=== PATIENT | male | born 1935 | race Caucasian/White ===

== ENCOUNTER 2017-05-19 23:34 | Inpatient (IN) | payer MEDICARE ==
[~2017-05-19] VITALS: Ht 177.8 cm; Wt 127.0 kg
[2017-05-19 23:49] LABS: APPEARANCE CLOUDY (CLEAR); BILIRUBIN NEGATIVE (NEGATIVE); COLOR YELLOW (YELLOW); GLUCOSE NEGATIVE (NEGATIVE); KETONE NEGATIVE (NEGATIVE); LEUKOCYTE ESTERASE 2+ (NEGATIVE); NITRITE POSITIVE (NEGATIVE); PROTEIN 1+ mg/dL (NEGATIVE); UROBILINOGEN NORMAL (NORMAL)
[2017-05-19 23:50] LABS: BACTERIA MANY /hpf (NONE SEEN); EPITHELIAL CELLS 0-5 /hpf (0-5)
[2017-05-19 23:51] LABS: HEMATOCRIT 27.2 % (42.0-54.0); HEMOGLOBIN 9.1 g/dL (13.5-17.5); LYMPHOCYTES 13.5 % (15-50); MCH 31.6 pg (26.0-34.0); MCHC 33.5 g/dL (31.0-37.0); MCV 94.4 fL (80.0-100.0); MEAN PLATELET VOLUME 9.9 fL (7.4-10.4); NEUTROPHILS 80.9 % (40-80); PLATELET COUNT 163 10x3/uL (130-400); RBC 2.88 10x6/uL (4.20-6.10); RDW 15.1 % (11.5-14.5); WBC 11.4 10x3/uL (4.8-10.8)
[2017-05-20 00:18] LABS: ANION GAP 17.8 mmol/L (8-16); BILIRUBIN - TOTAL 0.5 mg/dL (0.2-1.3); CALCIUM 8.8 mg/dL (8.5-10.1); CARBON DIOXIDE 22.9 mmol/L (21.0-32.0); CREATININE - SERUM 5.3 mg/dL (0.6-1.3); POTASSIUM - SERUM 4.7 mmol/L (3.5-5.1); PROTEIN - SERUM 5.9 g/dL (6.4-8.2)
--- NOTE | 2017-05-20 02:30 | NUR ---
ADMIT TO ROOM 2128 FROM ER. ADMISSION ASSESSMENT COMPLETED. PT IS CONFUSED/[place] AND A VERY POOR HISTORIAN. NO FAMILY PRESENT.
[2017-05-20 03:56] VITALS: BP 155/80; BMI 40.2
[2017-05-20 04:00] VITALS: BP 128/46
--- NOTE | 2017-05-20 07:30 | NUR ---
REPORT RECIEVED. PT RESTING QUIETLY, VERY JOS. RR EVEN AND UNLABORED, DENIES NEEDS AT THIS TIME. WILL CTM.
[2017-05-20 08:10] VITALS: BP 130/58
[2017-05-20 09:27] LABS: % SATURATION 19 % (15-55); IRON 28 ug/dl (35-150); TOTAL IRON BIND CAPACITY 142 ug/dl (260-445); UNSAT IRON BIND CAPACITY 114 ug/dl (150-375)
[2017-05-20 09:31] LABS: ANION GAP 12.5 mmol/L (8-16); CALCIUM 8.8 mg/dL (8.5-10.1); CARBON DIOXIDE 25.2 mmol/L (21.0-32.0); CREATININE - SERUM 5.1 mg/dL (0.6-1.3); MAGNESIUM - SERUM 1.6 mg/dL (1.8-2.4); PHOSPHOROUS 5.2 mg/dL (2.5-4.9); POTASSIUM - SERUM 4.7 mmol/L (3.5-5.1); T4 THYROXINE 3.1 ug/dL (4.7-13.3); THYROID STIMULATING HORMONE 3.14 uIU/mL (0.36-3.74)
[2017-05-20 12:04] VITALS: BP 116/54
[2017-05-20 15:59] VITALS: BP 102/58
--- NOTE | 2017-05-20 17:39 | NUR ---
PT RESTING QUIETLY, TANG CATHETER EMPTIED. RR EVEN AND UNLABORED, FAMILY AT BEDSIDE. SCDS PLACED ON PATIENT AND EXPLAINED RATIONALE FOR SCD. VERBALIZED UNDERSTANDING. WILL CTM.
--- NOTE | 2017-05-20 18:19 | HP ---
PATIENT: TU RUIZ MEDICAL RECORD: [id number] ACCOUNT: [id number] LOCATION:[address] : 37 ADMISSION DATE: 05/20/17 HISTORY AND PHYSICAL EXAMINATION DATE OF ADMISSION: 05/20/2017. CHIEF COMPLAINT: Urinary retention. HISTORY OF PRESENT ILLNESS: This patient is a 81-year-old gentleman who apparently does not have a physician who is admitted to this hospital. He is admitted to my service on an unassigned medicine. The patient apparently does see a nurse practitioner is unsure where, also sees Dr. Naik for diabetes. The patient apparently has had urinary retention in the past. He has also had problems with urinary incontinence has an indwelling Cancino catheter. The patient apparently states he has been bedfast since January 2017 and is nonambulatory. PAST MEDICAL HISTORY: Significant for having hypertension. He has had gastroesophageal reflux, diabetes mellitus, gout. He is a very poor historian. FAMILY HISTORY: Mother in her 80s of heart disease. Father of cancer in his 70s. SOCIAL HISTORY: Born and raised in [place]. 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 HABITS: The patient states he has 1 glass of vodka daily, stopped smoking in his 60s. MEDICATIONS: According to the ER, he uses Carvedilol 25 mg 1 p.o. b.i.d., allopurinol 300 mg 1 tablet p.o. b.i.d., Protonix 40 mg once a day, gabapentin 100 mg once a day, Plavix 75 mg once a day, Lantus subQ, dose unknown. ALLERGIES: No known drug allergies. REVIEW OF SYSTEMS: CONSTITUTIONAL: He denies any headaches, seizures or syncope. Denied change in visual or auditory acuity. PULMONARY: He denies any shortness of breath, cough, congestion, history of TB, asthma, bronchitis. CARDIOVASCULAR: He has had no chest pain, palpitations, PND or orthopnea. GASTROINTESTINAL: No chronic nausea, vomiting, melena or hematochezia. GENITOURINARY: No urgency, frequency, or dysuria. PHYSICAL EXAMINATION: VITAL SIGNS: In the Emergency Room, his temperature is 97, his pulse 71, respirations 20, blood pressure 160/82. GENERAL: The patient is somewhat alert. He is oriented to person only, not to time, not to place. HEENT: Head is normocephalic. No lesions. Ears: TMs clear. Eyes: Pupils equal, round and reactive to light and his extraocular movements are intact. Nasal cavity, oral cavity, oropharynx clear. NECK: Supple. There is no adenopathy. HEART: Has a regular rate and rhythm without any murmurs, gallops or rubs. HISTORY AND PHYSICAL [id number] SARATU LUNGS: Clear. ABDOMEN: Soft, nontender. LABORATORY DATA: White count 11.4, hemoglobin 9.1, hematocrit 27.2 and his platelets were 163. He had sodium of 138, potassium was 4.7, chloride 102, CO2 is 22.9, his BUN is 83, creatinine is 5.3. Urinalysis, the patient has 2+ blood. He also has 10-25 rbc's, 10-25 wbc's, many bacteria is noted. ASSESSMENT: Urinary retention, kidney failure, diabetes mellitus bedfast, hyperuricemia, hypertension. PLAN: The patient is admitted. We will exchange Foleys. We will have a renal ultrasound. Nephrology consultation will be obtained. The patient will be placed on Rocephin 1 gram q.24 hours due to his renal functions. The patient had been given Levaquin in the Emergency Room despite elevated BUN and creatinine. He will have urine cultures. Continue IV hydration. TRANSINT:[id number] Voice Confirmation ID: [id number] DOCUMENT ID: [id number] RICK CHRISTIE MD at 1819 CC: [id number] DICTATION DATE: 05/20/17 0743 DEPARTMENT OF MATHEMATICS CHAIR: 05/20/17 0827 ADM IN [facility] [address] [place] [address]
--- NOTE | 2017-05-20 19:56 | NUR ---
RECEIVED REPORT, WILL ASSUME CARE OF PT, PT SLEEPING AT THIS TIME, BED IS LOW, SRX2, CALL LIGHT IN REACH, WILL CONTINUE PLAN OF CARE
[2017-05-20 20:00] VITALS: BP 138/60
[2017-05-21 04:00] VITALS: BP 135/63
--- NOTE | 2017-05-21 05:00 | NUR ---
PT RESTING IN BED WITH NO DISTRESS. MONITOR AND CPOC.
[2017-05-21 05:29] LABS: BASOPHILS 0.1 % (0-2); EOSINOPHILS 2.1 % (0-7); HEMATOCRIT 24.6 % (42.0-54.0); HEMOGLOBIN 8.1 g/dL (13.5-17.5); IMMATURE GRANULOCYTES 0.3 % (0-5); LYMPHOCYTES 16.9 % (15-50); MCH 31.5 pg (26.0-34.0); MCHC 32.9 g/dL (31.0-37.0); MCV 95.7 fL (80.0-100.0); MEAN PLATELET VOLUME 11.2 fL (7.4-10.4); MONOCYTES 7.2 % (2-11); NEUTROPHILS 73.4 % (40-80); PLATELET COUNT 147 10x3/uL (130-400); RBC 2.57 10x6/uL (4.20-6.10); RDW 15.3 % (11.5-14.5); WBC 8.9 10x3/uL (4.8-10.8)
[2017-05-21 06:08] LABS: ALBUMIN 1.7 g/dL (3.4-5.0); ANION GAP 13.8 mmol/L (8-16); BILIRUBIN - TOTAL 0.26 mg/dL (0.2-1.3); CARBON DIOXIDE 23.5 mmol/L (21.0-32.0); CREATININE - SERUM 4.6 mg/dL (0.6-1.3); POTASSIUM - SERUM 4.3 mmol/L (3.5-5.1); PROTEIN - SERUM 4.9 g/dL (6.4-8.2)
--- NOTE | 2017-05-21 07:34 | NUR ---
AM ROUNDS- PT IN BED, WITH EYES CLOSED, BED LOW AND WHEELS LOCKED, BEDSIDE RAILS X2. RT FA IV INFUSING NS AT 150. RESP EVEN AND UNLABORED ON RA. NAD NOTED, CALL LIGHT IN REACH, WILL CONTINUE TO MONITOR.
[2017-05-21 08:00] VITALS: BP 118/58
[2017-05-21 09:18] LABS: FOLATE (FOLIC ACID) - SERUM >20.0 ng/mL (>3.0)
--- NOTE | 2017-05-21 09:32 | NUR ---
AM MEDS GIVEN AT THIS TIME. PT STATES THAT HIS TANG WAS CHANGED IN THE ER WHEN HE CAME IN LAST NIGHT. STATES THAT HE HAS A TANG BECAUSE HE HAS NO FEELING FROM THE LEGS DOWN. PT IN BED, DENIES ANY NEEDS AT THIS TIME. CALL LIGHT IN REACH, NAD NOTED, WILL CONTINUE TO MONITOR.
[2017-05-21 11:07] VITALS: Ht 177.8 cm; Wt 127.0 kg
--- NOTE | 2017-05-21 11:37 | NUR ---
BLOOD SUGAR OF 165, 2UNITS OF HUMALOG GIVEN PER S/S. PT IN BED, DENIES ANY NEEDS AT THIS TIME. CALL LIGHT IN REACH, NAD NOTED, WILL CONTINUE TO MONITOR.
[2017-05-21 12:00] VITALS: BP 144/58
[2017-05-21 16:00] VITALS: BP 139/58
--- NOTE | 2017-05-21 16:15 | NUR ---
BLOOD SUGAR OF 191, 2 UNITS OF HUMALOG GIVEN PER S/S. PT IN BED, DENIES ANY NEEDS AT THIS TIME. CALL LIGHT IN REACH, NAD NOTED, WILL CONTINUE TO MONITOR.
[2017-05-21 19:00] VITALS: BP 143/59
--- NOTE | 2017-05-21 19:00 | NUR ---
PT IN BED FAMILY AT BEDSIDE DENIES NEEDS AT THIS TIME WILL CONTINUE TO MONITOR
--- NOTE | 2017-05-21 23:30 | NUR ---
PT IN BED RESTING EVEN AND UNLABORED RESPIRATIONS NOTED WILL CONTINUE TO MONITOR
[2017-05-22] VITALS: BP 140/58
[2017-05-22 04:00] VITALS: BP 154/61
--- NOTE | 2017-05-22 04:30 | NUR ---
LOG WASHER AT BEDSIDE TO OBTAIN VITALS, CALL LIGHT IN REACH. WILL CONTINUE TO MONITOR.
[2017-05-22 05:55] LABS: BASOPHILS 0.1 % (0-2); EOSINOPHILS 1.4 % (0-7); HEMATOCRIT 24.6 % (42.0-54.0); HEMOGLOBIN 8.1 g/dL (13.5-17.5); IMMATURE GRANULOCYTES 0.1 % (0-5); LYMPHOCYTES 16.2 % (15-50); MCH 31.3 pg (26.0-34.0); MCHC 32.9 g/dL (31.0-37.0); MEAN PLATELET VOLUME 10.8 fL (7.4-10.4); MONOCYTES 7.2 % (2-11); PLATELET COUNT 143 10x3/uL (130-400); RBC 2.59 10x6/uL (4.20-6.10); RDW 15.4 % (11.5-14.5); WBC 9.4 10x3/uL (4.8-10.8)
[2017-05-22 06:32] LABS: CALCIUM 8.5 mg/dL (8.5-10.1); CARBON DIOXIDE 22.2 mmol/L (21.0-32.0); CREATININE - SERUM 4.2 mg/dL (0.6-1.3); POTASSIUM - SERUM 4.2 mmol/L (3.5-5.1)
--- NOTE | 2017-05-22 07:20 | NUR ---
AM ROUNDING DONE WITH PATIENT APPEARING TO BE ASLEEP, RESP ARE EVEN AND NON LABORED. ON ROOM AIR. RIGHT FA SEEN WITH NS INFUSING AT KVO. TANG CATH PATENT WITH CLEAR YELLOW URINE. ON HEART MONITOR SHOWING CAF W BBB, HR 71. WILL CPOC.
[2017-05-22 08:00] VITALS: BP 134/56
--- NOTE | 2017-05-22 10:08 | NUR ---
TANG CATH REMOVED ORDERED. INSTRUCTED TO USE THE URINAL TO VOID. SON AND PATIENT'S AT BEDSIDE.
--- NOTE | 2017-05-22 11:27 | NUR ---
Patient Name: TU RUIZ Admission Status: ER Accout number: [id number] Admission Date: 05-20-2017 : 1935 Admission Diagnosis:RETENTION OF URINE, UNSPECIFIED Attending: NAIF Current LOS: 2 Anticipated DC Date: Planned Disposition: Home Primary Insurance: HUMANA CHOICE PPO MCR ADVANT LATE ENTRY FROM 05-21-17: Discharge Planning Comments: * Is the patient Alert and Oriented? Yes 0 * How many steps to enter\exit or inside your home? 1 0 * PCP LAURIE DELONG 0 * Pharmacy [facility] 0 * Preadmission Environment Home with Family 0 * ADLs Partial Dependent 0 * Partial ADLs (Assistance needed) Bathing Medication Management Toileting Transfers 0 * Equipment Hospital Bed Walker 0 * Other Equipment NO MEDICAL EQUIPMENT PROVIDER PREFERENCE 0 * List name and contact numbers for known caregivers / representatives who currently or will assist patient after discharge: RAMIRO RUIZ, SPOUSE, 0 * Community resources currently utilized Private Duty Care 0 * Please name any agencies selected above. PRIVATE AIDE SERVICES 2X WEEKLY 0 * Additional services required to return to the preadmission environment? Yes * Can the patient safely return to the preadmission environment? Yes 0 * Has this patient been hospitalized within the prior 30 days at any hospital? No 0 CM MET WITH PT IN ROOM TO DISCUSS DISCHARGE PLANNING AND NEEDS. PT REPORTS LIVING AT HOME DEPENDENT ON HIS SPOUSE AND AIDE SERVICES FOR EVERYTHING. PT HAS A HOSPITAL BED AND WALKER AT HOME BUT REPORTS HE CAN NOT WALK ANYMORE AND DOES NOT GET OUT OF THE BED. PT HAS NO MEDICAL EQUIPMENT PROVIDER PREFERENCE. CM DISCUSSED AVAILABILITY OF HOME HEALTH, REHAB SERVICES AND MEDICAL EQUIPMENT. PT DENIES DISCHARGE NEEDS, REPORTS HIS WILL GET HIM HOME AT DISCHARGE. PT STATES THAT HE IS NOT GOING BACK TO THE ASSISTED THEY DID HIM NO GOOD. PT DOES NOT WANT HOME HEALTH THERAPY STATING THEY CAN NOT DO ANYTHING FOR HIM EITHER. CM CALLED RAMIRO RUIZ, , LEFT MESSAGE AND RECEIVED RETURN CALL. THEY HAVE AIDE SERVICES 2X A WEEK TO ASSIST WITH PT WHO LAST WALKED JANUARY 03, 2017. HE SPENT 14 DAYS AT [facility],THEN 3 MONTHS AT [facility] BEFORE GOING HOME. PT IS CONFINED TO THE BED AND THEY PROVIDE HIS CARE IN THE BED. PT'S SPOUSE REPORTS PLAN TO TAKE PT HOME AT DISCHARGE. PT PLANS TO RETURN HOME WITH SPOUSE. PT AND SPOUSE REPORT PT TO BE BED CONFINED AND PT MAY REQUIRE AMBULANCE TRANSPORT TO GET HOME. CM TO FOLLOW AND ASSIST NEEDED. Marine Firefighter: John Serna
[2017-05-22 12:00] VITALS: BP 137/61
[2017-05-22 16:00] VITALS: BP 136/59
--- NOTE | 2017-05-22 16:07 | NUR ---
POC GLUCOSE CHECKED WITH RESULTS OF 168. WILL COVER WITH 2 UNITS OF INSULIN WHEN SUPPER TRAYS ARE HERE.
--- NOTE | 2017-05-22 17:34 | NUR ---
AT BEDSIDE. LAB RESUTLS REVIEWED WITH HER. PATIENT DENIES ANY NEEDS AT PRESENT TIME.
[2017-05-22 19:00] VITALS: BP 138/64
--- NOTE | 2017-05-22 19:34 | NUR ---
PT BED ATTENTION FOCUSED ON TELEVISION DENIES NEEDS AT THIS TIME WILL CONTINUE TO MONITOR
--- NOTE | 2017-05-23 00:36 | NUR ---
COUNTER TENDER AT BEDSIDE TO OBTAIN VITALS, CALL LIGHT IN REACH. WILL CONTINUE WITH PLAN OF CARE.
[2017-05-23 04:00] VITALS: BP 135/60
[2017-05-23 05:44] LABS: CHOL - HDL RATIO 4.6 ratio (2.3-4.9); LDL-HDL RATIO 2.9 ratio (1.5-3.5)
--- NOTE | 2017-05-23 07:37 | NUR ---
AM ROUNDING WITH PATIENT APPEARING TO BE ASLEEP, RESP ARE EVEN AND NON LABORED AT THIS TIME. ON ROOM AIR. LEFT PACEMAKER SITE SEEN. ON HEART MONITOR SHOWING CAF, HR 78. TANG CATH PATENT WITH CLEAR URINE. RIGHT FA SEEN WITH NS INFUSING AT KVO. BILATERAL SCD ON AND IN USE CORRECTLY. STRICT BEDREST. CPOC.
[2017-05-23 08:00] VITALS: BP 152/63
[2017-05-23 10:56] LABS: ALBUMIN 1.8 g/dL (3.4-5.0); ANION GAP 14.4 mmol/L (8-16); BILIRUBIN - TOTAL 0.4 mg/dL (0.2-1.3); CALCIUM 8.9 mg/dL (8.5-10.1); CARBON DIOXIDE 21.5 mmol/L (21.0-32.0); MAGNESIUM - SERUM 1.2 mg/dL (1.8-2.4); PHOSPHOROUS 4.4 mg/dL (2.5-4.9); POTASSIUM - SERUM 3.9 mmol/L (3.5-5.1); PROTEIN - SERUM 5.4 g/dL (6.4-8.2)
[2017-05-23 10:58] LABS: BASOPHILS 0.1 % (0-2); EOSINOPHILS 2.2 % (0-7); HEMATOCRIT 24.7 % (42.0-54.0); IMMATURE GRANULOCYTES 0.3 % (0-5); LYMPHOCYTES 14.5 % (15-50); MCH 30.7 pg (26.0-34.0); MCHC 32.4 g/dL (31.0-37.0); MCV 94.6 fL (80.0-100.0); MEAN PLATELET VOLUME 11.2 fL (7.4-10.4); MONOCYTES 6.6 % (2-11); NEUTROPHILS 76.3 % (40-80); PLATELET COUNT 162 10x3/uL (130-400); RBC 2.61 10x6/uL (4.20-6.10); RDW 15.1 % (11.5-14.5)
--- NOTE | 2017-05-23 11:03 | NUR ---
Patient Name: TU RUIZ Encounter No: [id number] : 1935 Primary Insurance: HUMANA CHOICE PPO MCR ADVANT Anticipated DC Date: 05-23-2017 Planned Disposition: Home with Home Health External Planned Provider: [facility] DCP follow-up note: CM RECEIVED HOME HEALTH ORDER FROM DR. WILDE, PLANNED DISCHARGE HOME TODAY WITH IM ROCEPHIN Q24. CM SPOKE TO PT IN ROOM WHO IS IN AGREEMENT WITH DISCHARGE HOME TODAY, INSTRUCTED CM TO CALL HIS . CM CALLED RAMIRO RUIZ, SPOUSE, , DISCUSSED DISCHARGE TODAY, RAMIRO IN AGREEMENT WITH DISCHARGE HOME TODAY BY AMBULANCE, SHE WILL BE HOME TO RECEIVE PT THIS AFTERNOON, REQUESTED [facility] THAT IS WHO THEY HAVE USED IN THE PAST. CHOICE LETTER COMPLETED VIA PHONE CONSENT. CM CALLED [place] [facility], , WHO REPORTED THAT PT IS ACTIVE WITH [facility] AND THEY WILL RESUME CARE TOMORROW AND CAN ACCOMODATE THE ROCEPHIN 1GM Q24 HOURS. CM FAXED REFERRAL TO [facility] AT [phone]. PT NOTIFIED, IMPORTANT MESSAGE FROM MEDICARE PROVIDED AND DISCUSSED. FOR DISCHARGE HOME, CALL PT'S SPOUSE, RAMIRO RUIZ, SPOUSE, TO VERIFY SHE IS HOME TO RECEIVE PT PRIOR TO CALLING AMBULANCE. CM TO FAX DISCHARGE INFORMATION AND HOME HEALTH ORDERS TO [facility] AT [phone]. John Serna, CASE MANAGEMENT
[2017-05-23] MEDS ORDERED: FERROUS SULFAT325 MG PO (11:53)
[2017-05-23] MEDS ORDERED: GABAPENTIN100 MG PO (11:54)
[2017-05-23] MEDS ORDERED: LANTUS INSULIN10 ML SC (11:55)
[2017-05-23] MEDS ORDERED: ZOCOR80 MG PO (11:55)
[2017-05-23] MEDS ORDERED: ZYLOPRIM300 MG PO (11:55)
[2017-05-23] MEDS ORDERED: PROTONIX40 MG PO (11:56)
[2017-05-23] MEDS ORDERED: COREG25 MG PO (11:58)
[2017-05-23] MEDS ORDERED: ROCEPHIN 1 GM/D51 G1 IM (12:09)
--- NOTE | 2017-05-23 13:55 | NUR ---
Patient Name: TU RUIZ Encounter No: [id number] : 1935 Primary Insurance: HUMANA CHOICE PPO MCR ADVANT Anticipated DC Date: 05-23-2017 Planned Disposition: Home with Home Health External Planned Provider: [facility] DCP follow-up note: CM RECEIVED AND FAXED DISCHARGE INFORMATION AND HOME HEALTH ORDERS TO [facility] AT [phone]. CM NOTIFIED [place] VIA PHONE AT [phone] OF ADDITIONAL ORDER OF URINALYSIS AND CULTURE IN 3-4 DAYS. FOR DISCHARGE HOME, CALL PT'S SPOUSE, RAMIRO RUIZ, SPOUSE, TO VERIFY SHE IS HOME TO RECEIVE PT PRIOR TO CALLING AMBULANCE. John Serna, CASE MANAGEMENT
--- NOTE | 2017-05-23 14:06 | NUR ---
TRIED TO CALL THE AT [phone] TO MAKE SURE SHE WAS HOME FOR US TO SEND THE PATIENT HOME VIA AMBULANCE. GET A VOICE MAIL AND ASKED THAT SHE CALL US WHEN SHE IS HOME. AWAITING CALL BACK.
--- NOTE | 2017-05-23 15:25 | NUR ---
TRIED AGAIN TO CALL THE , LEFT ANOTHER VOICE MAIL TO PLEASE CALL US.
[2017-05-23 16:00] VITALS: BP 146/60
--- NOTE | 2017-05-23 17:53 | NUR ---
STILL NO ANSWER FROM THE . WILL HAVE NEXT SHIFT CONTINUE TO TRY AND CALL HER. PATIENT IS MADE AWARE OF THIS.
--- NOTE | 2017-05-23 19:10 | NUR ---
CALLED AGAIN TO PATIENT'S TO SEE IF SHE IS HOME. SHE ANSWERED THE PHONE AND SAID THAT SHE WAS HOME. [facility]
--- NOTE | 2017-05-23 19:15 | NUR ---
IV REMOVED WITH CATH TIP INTACT.
== END 2017-05-23 19:50 | disposition home health service (06) | DRG 699 ==
LOC: D.ER 23:34 → D.M2 05-20 01:30
PROVIDERS: Family Medicine; Internal Medicine; Physician Assistant Medical; ADMIT Family Medicine
PROC: 0T9B70Z Drainage of Bladder with Drainage Device, Via Natural or Artificial Opening (ICD-10-PCS; principal; 2017-05-19)
DX: T83.511A Infection and inflammatory reaction due to indwelling urethral catheter, initial encounter (principal); N17.9 Acute kidney failure, unspecified; N39.0 Urinary tract infection, site not specified; E79.0 Hyperuricemia without signs of inflammatory arthritis and tophaceous disease; E11.22 Type 2 diabetes mellitus with diabetic chronic kidney disease; I12.9 Hypertensive chronic kidney disease with stage 1 through stage 4 chronic kidney disease, or unspecified chronic kidney disease; N18.3 Chronic kidney disease, stage 3 (moderate); Z79.4 Long term (current) use of insulin; D50.9 Iron deficiency anemia, unspecified; K21.9 Gastro-esophageal reflux disease without esophagitis; Z74.01 Bed confinement status; Z87.891 Personal history of nicotine dependence; Y84.6 Urinary catheterization as the cause of abnormal reaction of the patient, or of later complication, without mention of misadventure at the time of the procedure

== ENCOUNTER 2017-05-31 19:53 | Inpatient (IN) | payer MEDICARE ==
[~2017-05-31] VITALS: Ht 185.4 cm; Wt 127.3 kg
[~2017-05-31 19:53] MED LIST: COREG25 MG PO; FERROUS SULFAT325 MG PO; GABAPENTIN100 MG PO; LANTUS INSULIN10 ML SC; PROTONIX40 MG PO; ROCEPHIN 1 GM/D51 G1 IM; ZOCOR80 MG PO; ZYLOPRIM300 MG PO
[2017-05-31 20:21] LABS: APPEARANCE HAZY (CLEAR); COLOR YELLOW (YELLOW); LEUKOCYTE ESTERASE TRACE (NEGATIVE); SPECIFIC GRAVITY 1.015 (1.005-1.020)
[2017-05-31 20:22] LABS: BILIRUBIN NEGATIVE (NEGATIVE); GLUCOSE NEGATIVE (NEGATIVE); KETONE NEGATIVE (NEGATIVE); NITRITE POSITIVE (NEGATIVE); PROTEIN TRACE mg/dL (NEGATIVE); UROBILINOGEN NORMAL (NORMAL)
[2017-05-31 20:25] LABS: BACTERIA FEW /hpf (NONE SEEN); EPITHELIAL CELLS RARE /hpf (0-5)
[2017-05-31 20:55] LABS: BASOPHILS 0.1 % (0-2); EOSINOPHILS 1.5 % (0-7); HEMATOCRIT 27.3 % (42.0-54.0); HEMOGLOBIN 8.7 g/dL (13.5-17.5); IMMATURE GRANULOCYTES 0.2 % (0-5); LYMPHOCYTES 11.5 % (15-50); MCH 31.3 pg (26.0-34.0); MCHC 31.9 g/dL (31.0-37.0); MCV 98.2 fL (80.0-100.0); MONOCYTES 6.3 % (2-11); NEUTROPHILS 80.4 % (40-80); PLATELET COUNT 189 10x3/uL (130-400); RBC 2.78 10x6/uL (4.20-6.10); RDW 15.6 % (11.5-14.5)
[2017-05-31 21:08] LABS: ALBUMIN 2.1 g/dL (3.4-5.0); ANION GAP 12.5 mmol/L (8-16); BILIRUBIN - TOTAL 0.5 mg/dL (0.2-1.3); CALCIUM 8.9 mg/dL (8.5-10.1); CARBON DIOXIDE 25.8 mmol/L (21.0-32.0); CREATININE - SERUM 3.2 mg/dL (0.6-1.3); POTASSIUM - SERUM 4.3 mmol/L (3.5-5.1); PROTEIN - SERUM 5.9 g/dL (6.4-8.2)
--- NOTE | 2017-05-31 23:50 | NUR ---
RECEIVED PT TO FLOOR FROM ER VIA STRETCHER. TRANSFERRED PT TO BED. PT UNABLE TO AMBULATE. PRE-HOSPITAL TANG CHANGED IN ER. PT DIRTY. REMOVED DIAPER AND PERFORMED PERICARE AND TANG CARE. NOTED ARE TWO STAGE TWO BLEEDING ULCERS ON EACH SIDE OF INNER BUTTOCKS. CLEANSED AND APPLIED BUTT PASTE AND MEPILEX "HEART" DRESSING. REMOVED DRESSING ON UPPER BACK AND FOUND A QUARTER SIZE "BUMP" WITH YELLOW DRAINAGE. CLEANSED AND APPLIED NEW BORDER DRESSING. BRUISES ON ARMS AND A FEW SCABS ON BACK. PT IS VERY HARD OF HEARING BUT IS ALERT & ORIENTED. NEURO CHECKS ARE WNL. PT HAS GROSS TREMORS BUT SAYS HE IS "COLD". PLACED TELEMETRY RUNNING 70 SR, SCD'S AND MILEY ALARM. COMPLETE ASSESSMENT PER FLOW-SHEET. WILL CONTINUE TO MONITOR.
[2017-06-01] VITALS (7 sets, daily range): BP systolic 95–136; BP diastolic 44–62; Ht 185.4 cm; Wt 127.3 kg
[2017-06-01] MEDS ORDERED: PLAVIX75 MG PO (00:04)
[2017-06-01] MEDS ORDERED: TENEX1 MG PO (00:05)
[2017-06-01] MEDS ORDERED: KEFLEX500 MG PO (00:09)
--- NOTE | 2017-06-01 07:15 | NUR ---
PATIENT RESTING QUIETLY IN THE BED. EYES CLOSED. NO S/S OF DISTRESS NOTED. CALL LIGHT IN PATIENT'S REACH. WILL MONITOR PATIENT.
--- NOTE | 2017-06-01 08:37 | NUR ---
PATIENT IS RESTING IN HIS BED WITH HIS EYES CLOSED. PATIENT AWAKENS TO VERBAL STIMULI. PATIENT KNOWS HIS NAME, WHERE HE IS AT, AND KNOWS WHAT YEAR IT IS. ASSESSMENT COMPLETED. SEE FLOW SHEET FOR ANY DETAILS. TELEMETRY IN PLACE AND SHOWING A PACED RHYTHM AT 63. PATIENT DENIES ANY NEEDS AT PRESENT TIME. SCHEDULED MORNING MEDICATIONS GIVEN TO PATIENT. PATIENT TOLERATED WELL WITH WATER. CALL LIGHT IN PATIENT'S REACH. WILL MONITOR PATIENT.
--- NOTE | 2017-06-01 10:17 | NUR ---
UNABLE TO PERFORM MRI. PATIENT HAS A PACEMAKER. DR SMYTH NOTIFIED.
--- NOTE | 2017-06-01 16:15 | NUR ---
FSBS 173. 2 UNITS OF HUMALOG SLIDING SCALE INSULIN GIVEN TO PATIENT. PATIENT TOLERATED WELL. PATIENT DENIES ANY NEEDS AT PRESENT TIME. CALL LIGHT IN PATIENT'S REACH. WILL MONITOR PATIENT.
--- NOTE | 2017-06-01 19:00 | NUR ---
REPORT RECEIVED AND CARE OF PT ASSUMED. PT LYING IN HIGH ANDREWS'S POSITION WITH EYES CLOSED AND EASY RESPIRATIONS. TANG CATHETER DRAINING TO GRAVITY WITH YELLOW URINE IN COLLECTION BAG. IV IN LEFT FA PATENT WITH NS INFUSING AT 50 ML / HR. TELEMETRY IN PLACE AND PT PACED AT 64 AT THIS TIME. WILL MONITOR CLOSLEY FOR NEEDS.
--- NOTE | 2017-06-01 20:27 | NUR ---
HS MEDICATIONS GIVEN. PT LETHARGIC, BUT AWAKES TO VOICE, FOLLOWS COMMANDS, AND SWALLOWS MEDICATIONS AND WATER WITHOUT DIFFICULTY.
[2017-06-02] VITALS: BP 110/58
[2017-06-02 03:10] LABS: BASOPHILS 0.2 % (0-2); EOSINOPHILS 2.6 % (0-7); HEMATOCRIT 25.6 % (42.0-54.0); HEMOGLOBIN 8.2 g/dL (13.5-17.5); IMMATURE GRANULOCYTES 0.1 % (0-5); LYMPHOCYTES 15.6 % (15-50); MCH 31.3 pg (26.0-34.0); MCV 97.7 fL (80.0-100.0); MEAN PLATELET VOLUME 11.1 fL (7.4-10.4); MONOCYTES 7.5 % (2-11); PLATELET COUNT 182 10x3/uL (130-400); RBC 2.62 10x6/uL (4.20-6.10); RDW 15.6 % (11.5-14.5); WBC 8.3 10x3/uL (4.8-10.8)
[2017-06-02 03:30] LABS: ALBUMIN 1.9 g/dL (3.4-5.0); ANION GAP 14.4 mmol/L (8-16); BILIRUBIN - TOTAL 0.4 mg/dL (0.2-1.3); CARBON DIOXIDE 23.9 mmol/L (21.0-32.0); CREATININE - SERUM 2.9 mg/dL (0.6-1.3); MAGNESIUM - SERUM 1.6 mg/dL (1.8-2.4); PHOSPHOROUS 4.2 mg/dL (2.5-4.9); POTASSIUM - SERUM 4.3 mmol/L (3.5-5.1); PROTEIN - SERUM 5.6 g/dL (6.4-8.2)
[2017-06-02 04:00] VITALS: BP 126/57
--- NOTE | 2017-06-02 05:18 | NUR ---
PER ELECTROLYTE PROTOCOL WILL GIVE MAG 400 MG PO Q4 X2 AND RE-CHECK LEVEL WITH AM LABS.
--- NOTE | 2017-06-02 08:15 | NUR ---
PT SLEEPING. WAKES UP TO VOICE. ANSWERS APPROPRIATELY. ON ROOM AIR. NS INFUSING AT 50 ON L-FOREARM PERIPHERAL IV. TANG SECURED TO LEFT THIGH WITH DRAINAGE BAG BELOW BLADDER. BED LOW POSITION. BED ALARM ON. CALL LIGHT IN REACH. NO OTHER NEEDS AT THIS TIME.
[2017-06-02 08:59] VITALS: BP 128/47
--- NOTE | 2017-06-02 10:12 | NUR ---
TELEPHONE CALL TO MRS MIRANDASCH TO ASCERTAIN THE DISCHARGE PLAN AND COMPLETE PATIENT'S ASSESSMENT. NO ANSWER. LEFT VOICE MAIL.
--- NOTE | 2017-06-02 10:47 | NUR ---
UNABLE TO GIVE TENEX AT 0900. GRAYED OUT IN [place]. CALLED PHARMACY.THEY ARE LOOKING INTO IT. WILL CONINUE TO CHECK.
[2017-06-02 11:41] VITALS: BP 129/55
--- NOTE | 2017-06-02 13:51 | NUR ---
PT GOING TO HAVE CT OF HIS HEAD.
[2017-06-02 16:19] VITALS: BP 128/62
--- NOTE | 2017-06-02 19:30 | NUR ---
RECIEVED SHIFT REPORT. PT IS LYING IN BED. ALERT AND ORIENTED AND ABLE TO VERBALIZE NEEDS. IV IS PATENT AND FLUIDS ARE RUNNING PER ORDER. PT REQUIRES ASSISTANCE TURNING IN BED FOR COMFORT AND SKIN CARE. TANG IS DRAINING URINE BY GRAVITY. SCD'S ON. PT DENIES ANY PAIN AT THIS TIME. NO NEEDS ARE VERBALIZED AT THIS TIME. WILL CONTINUE TO MONITOR. SIDE RAILS ARE UP X 2. BED IS IN LOWEST POSITION. MILEY MAT IS ON FOR SAFETY. CALL LIGHT IS WITHIN REACH.
[2017-06-02 20:00] VITALS: BP 149/68
--- NOTE | 2017-06-02 21:50 | NUR ---
SHIFT ASSESSMENT COMPLETED. NIGHT MEDS GIVEN WITH NO PROBLEMS. PT RECIEVED 2 UNITS INSULIN PER SLIDING SCALE FOR TBID=165. SCHEDULED LANTUS ADMINISTERED PER ORDER. NO NEEDS ARE VOICED. WILL MONITOR. SIDE RAILS X 2. BED LOW. MILEY ON. CALL LIGHT IN REACH.
[2017-06-03] VITALS: BP 127/56
[2017-06-03 03:59] VITALS: BP 130/52
--- NOTE | 2017-06-03 04:36 | NUR ---
URINE SENT TO LAB FOR WARRENTED TESTS.
[2017-06-03 05:05] LABS: BASOPHILS 0.1 % (0-2); EOSINOPHILS 2.1 % (0-7); HEMATOCRIT 25.6 % (42.0-54.0); HEMOGLOBIN 8.2 g/dL (13.5-17.5); IMMATURE GRANULOCYTES 0.2 % (0-5); LYMPHOCYTES 16.5 % (15-50); MCH 31.4 pg (26.0-34.0); MCV 98.1 fL (80.0-100.0); MEAN PLATELET VOLUME 11.6 fL (7.4-10.4); MONOCYTES 7.1 % (2-11); PLATELET COUNT 193 10x3/uL (130-400); RBC 2.61 10x6/uL (4.20-6.10); RDW 15.5 % (11.5-14.5); WBC 8.9 10x3/uL (4.8-10.8)
[2017-06-03 05:21] LABS: ANION GAP 14.7 mmol/L (8-16); CALCIUM 9.1 mg/dL (8.5-10.1); CARBON DIOXIDE 22.6 mmol/L (21.0-32.0); CREATININE - SERUM 2.9 mg/dL (0.6-1.3); MAGNESIUM - SERUM 1.6 mg/dL (1.8-2.4); POTASSIUM - SERUM 4.3 mmol/L (3.5-5.1)
[2017-06-03] MEDS ORDERED: COREG 3.1253.125 MG PO (07:06)
[2017-06-03] MEDS ORDERED: FLORASTOR250 MG PO (07:07)
[2017-06-03] MEDS ORDERED: LANTUS INSULIN10 ML SC (07:07)
[2017-06-03] MEDS ORDERED: ASPIRIN325 MG PO (07:07)
[2017-06-03] MEDS ORDERED: MAG-OX 400 MG400 MG PO (07:08)
--- NOTE | 2017-06-03 07:28 | NUR ---
PT SITTING UP IN BED SLEEPING NO S/S DISTRESS NOTED RR EVEN AND UNLABORED WILL CONT TO MONITOR
[2017-06-03 09:24] VITALS: BP 132/57
--- NOTE | 2017-06-03 09:47 | NUR ---
CM REASSESSMENT NOTE: CM HAS CALLED WIFES NUMBER NUMEROUS TIMES WITH NO ANSWER. CM THEN CALLED ON LICENSE OF [facility] THAT PATIENT IS CURRENT WITH AND SPOKE WITH DEAN HIS TRACK LAYING MACHINE OPERATOR. DEAN STATED THAT THE WILL NEVER ANSWER THE PHONE AND THAT SHE WILL LEAVE HIM HOME AT TIMES. DEAN STATED THAT HE CALLED APS ON THE (LAST WEEK) AND THE [employer] ACTIVITIES DIRECTOR WITH ALSO CALLED APS. THEN DEAN STATED LAURIE MEI WITH HOUSE CALLS ALSO CALLED APS. CM CALLED HOUSE CALLS AND LAURIEOLGA MEI RETURNED CM CALL. LAURIE STATED SHE DID CALL APS AND TALKED WITH RICK REGARDING PATIENTS CARE. PATIENT IS BEING LEFT ALONE FOR LONG PERIODS OF TIME PER LAURIE AND IF HE HAS A BOWEL MOVEMENT HE LAYS IN IT UNTIL DAUGHTER GETS OFF WORK PER HIS . LUARIE STATED THAT IT IS NOT SAFE FOR PATIENT TO RETURN HOME AND TO CALL RICK AT [facility] REGARDING PATIENTS DISCHARGE. CM CALLED RICK AT [facility] AND HE STATED HE HAD SPOKEN TO PATIENTS DAUGHTER AND SHE WAS HIRING HELP FOR HER DAD AND RICK STATED HE WAS FINE TO RETURN HOME AT DISCHARGE AND APS WOULD BE FOLLOWING UP. CM THEN CALLED LAURIE MEI AND EXPLAINED WHAT APS SAID AND SHE STATED SHE WOULD FOLLOW UP THIS WEEK WITH PATIENT AND WOULD SPEAK TO DEMETRIO MOROCHO WITH DR. PACHECO TODAY. CM WILL CONTINUE TO FOLLOW PATIENT WITH D/C NEEDS AND PLANS. PCP SEES LAURIE MEI APN WITH HOUSE CALLS PHARMACY UNKNOWN (RAMIRO) [phone] APS RICK [phone] HOUSE CALLS [phone]
--- NOTE | 2017-06-03 13:33 | NUR ---
PT SITTING UP IN BED EATING LUNCH AT THIS TIME. PT IS LETHARGIC TODAY BUT DOES ARROUSE EASILY TO TOUCH OR VOICE STIMULI. PT WITH TANG CATH THAT HE STATES IS CHRONIC BEFORE ADMISSION, NIGHT STAFF ALSO RELAYED THIS IN REPORT. PT HAS NOT HAD ANY COMPLAINTS JUST WANTS TO GO HOME. PCP IS DR PACHECO AND DR PACHECO TO MAKE ROUNDS TO MAKE SURE OK FOR PT TO BE DC HOME WITH .
[2017-06-03 14:02] VITALS: BP 132/61
--- NOTE | 2017-06-03 14:55 | NUR ---
DAVE HAS CALLED PATIENTS NUMEROUS TIMES WITH NO ANSWER. DAVE CALLED RICK AT [facility] AND HE IS MAKING SOME CALLS AND STILL STATES PATIENT IS OK TO DISCHARGE HOME.
--- NOTE | 2017-06-03 15:18 | NUR ---
CM REASSESSMENT NOTE: CM SPOKE WITH DAUGHTER MELODY AND SHE STATED HER AND HER MOTHER ARE HOME. PATIENT WILL DISCHARGE BY AMBULANCE TODAY. RESPIRATORY CHECKED OXYGEN LEVEL AND IT WAS 97% ON ROOM AIR. HOUSE CALLS WILL SEE PATIENT AFTER DISCHARGE.
--- NOTE | 2017-06-03 16:15 | NUR ---
WENT OVER DC PAPERWORK WITH PT PT VERBALIZES UNDERSTANDING. DC PIV WTIH CATH TIP INTACT. DC TELE AND RETURNED TO DIAMOND POWDER TECHNICIAN. ELISHA ON AMBULANCE TO TOLL TEST WORKER PT
[2017-06-03 16:20] VITALS: BP 135/60
--- NOTE | 2017-06-05 13:55 | EC ---
PATIENT:TU RUIZ DATE OF SERVICE: 05/31/17 SEX: M MEDICAL RECORD: [id number] DATE OF : [birth year] LOCATION:[facility] AGE OF PATIENT: 81 ADMISSION DATE: 06/02/17 REFERRING PHYSICIAN: INTERPRETING PHYSICIAN: ORIANA STONE MD ECHOCARDIOGRAM REPORT ECHO CHARGES 4 ECHO COMPLETE CLINICAL DIAGNOSIS: CVA HX OF PACER ECHOCARDIOGRAPHIC MEASUREMENTS (adult normal given) AC root (d.<3.7cm) 3.8 cm LV Septum d (<1.2 cm> 1.6 cm Valve Excursion 1.0 cm LV Septum (systole) 2.0 cm Left Atria (s.<4.0cm> 4.5 cm LVPW d(<1.2cm) 1.5 cm RV (d.<2.3cm) 5.6 cm LVPW (sytole) 2.0 cm LV diastole(<5.6CM) 6.8 cm MV E-F(>70mm/sec) cm LV systole 4.8 cm LVOT Diameter 1.8 cm MV exc.(>10mm) 1.8 cm Est.ejection fraction (50-75%) % Pericardial Effusion N DOPPLER: LVIT cm/sec A 40.0 cm/sec E 96.0 cm/sec LA cm/sec RVSP 30 mmHg LVOT 80 cm/sec AOP1/2T m/s Asc. Ao 145 cm/sec RVOT cm/sec RA cm/sec PA cm/sec AV Gradient Peak 8.38 mmHg AV Mean 4.48 mmHg AV Area 2.0 cm MV Gradient Peak 6.54 mmHg MV Mean 2.07 mmHg MV Area cm COMMENTS: Poultry Processor: 2 ALBERTO MCCALL Piling Cutter: 3 Dr. Wetzel TAPE# PACS DATE OF SERVICE: 06/01/2017 Adequate 2D echo, color flow, spectral Doppler and M-Mode. LVH is present. LV internal dimensions are normal. 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 Overall, function reduced at 35% to 40%. Aortic valve sclerosis without stenosis by Doppler interrogation. The left atrium is dilated at 4.5 cm. Mitral valve shows no prolapse. Mild MR. Right-sided chamber is grossly normal. Mild TR. TRANSINT:[id number] Voice Confirmation ID: [id number] DOCUMENT ID: [id number] ECHOCARDIOGRAM REPORT [id number] TU RUIZ 06/05/2017 Edited to correct date of service, dmm. ORIANA STONE MD at 1355 CC: [id number] DICTATION DATE: 06/02/17918 PARK ATTENDANT: 06/02/17 1307 DIS IN 06/03/17 [place] [id number]
== END 2017-06-03 17:22 | disposition home or self-care (01) | DRG 637 ==
LOC: D.ER 19:53 → D.MS 22:45 → OBSVTIME 22:45 → D.MS 22:45
PROVIDERS: Emergency Medicine; ADMIT Family Medicine
PROC: 0T9B70Z Drainage of Bladder with Drainage Device, Via Natural or Artificial Opening (ICD-10-PCS; principal; 2017-05-31)
DX: E11.65 Type 2 diabetes mellitus with hyperglycemia (principal); G93.41 Metabolic encephalopathy; G93.49 Other encephalopathy; K21.9 Gastro-esophageal reflux disease without esophagitis; E11.22 Type 2 diabetes mellitus with diabetic chronic kidney disease; N18.9 Chronic kidney disease, unspecified; D63.1 Anemia in chronic kidney disease; Z79.4 Long term (current) use of insulin

== ENCOUNTER → 2017-07-25 15:56 | Outpatient (CLI) | payer MEDICARE ==
[2017-06-01 01:16] VITALS: BMI 37.0
[~2017-07-25 15:56] MED LIST changes: +ASPIRIN325 MG PO; +COREG 3.1253.125 MG PO; +FLORAJEN3 CAPS460 MG PO; +FLORASTOR250 MG PO; +K-DUR20 MEQ PO; +KEFLEX500 MG PO; +LASIX40 MG PO; +MAG-OX 400 MG400 MG PO; +PLAVIX75 MG PO; +TENEX1 MG PO; +VIBRAMYCIN 100100 MG PO
[2017-07-25 16:46] LABS: APPEARANCE HAZY (CLEAR); BILIRUBIN NEGATIVE (NEGATIVE); COLOR YELLOW (YELLOW); GLUCOSE NEGATIVE (NEGATIVE); KETONE NEGATIVE (NEGATIVE); NITRITE NEGATIVE (NEGATIVE); PROTEIN TRACE mg/dL (NEGATIVE); SPECIFIC GRAVITY 1.015 (1.005-1.020); UROBILINOGEN NORMAL (NORMAL)
[2017-07-25 16:47] LABS: BACTERIA MODERATE /hpf (NONE SEEN); WHITE CELLS - URINE >50 /hpf (0-5); YEAST >1+ WITH HYPHAE /hpf (NONE SEEN)
== END | disposition home or self-care (01) ==
LOC: D.LABREF 15:56
PROVIDERS: Family Medicine
DX: N39.0 Urinary tract infection, site not specified (principal)

== ENCOUNTER 2017-08-12 17:06 | Inpatient (IN) | payer MEDICARE ==
[~2017-08-12] VITALS: Ht 185.4 cm; Wt 127.0 kg
[~2017-08-12 17:06] MED LIST changes: -FLORAJEN3 CAPS460 MG PO; -K-DUR20 MEQ PO; -LASIX40 MG PO; -VIBRAMYCIN 100100 MG PO
[2017-08-12 18:38] LABS: HEMATOCRIT 28.8 % (42.0-54.0); HEMOGLOBIN 9.1 g/dL (13.5-17.5); INR 1.06 (0.85-1.17); MCH 31.2 pg (26.0-34.0); MCHC 31.6 g/dL (31.0-37.0); MCV 98.6 fL (80.0-100.0); MEAN PLATELET VOLUME 10.3 fL (7.4-10.4); PLATELET COUNT 216 10x3/uL (130-400); PROTIME 13.7 SECONDS (11.6-15.0); RBC 2.92 10x6/uL (4.20-6.10); RDW 15.9 % (11.5-14.5)
[2017-08-12 18:51] LABS: ALBUMIN 1.9 g/dL (3.4-5.0); ANION GAP 16.2 mmol/L (8-16); BILIRUBIN - TOTAL 0.95 mg/dL (0.2-1.3); CALCIUM 9.8 mg/dL (8.5-10.1); CARBON DIOXIDE 22.8 mmol/L (21.0-32.0); CREATININE - SERUM 2.2 mg/dL (0.6-1.3); MAGNESIUM - SERUM 1.6 mg/dL (1.8-2.4); PROTEIN - SERUM 6.4 g/dL (6.4-8.2); TROPONIN-I 0.044 ng/mL (0.000-0.060)
[2017-08-12 19:04] LABS: EOSINOPHILS 4 % (0-7); LYMPHOCYTES 3 % (15-50); MONOCYTES 3 % (2-11); NEUTROPHILS 90 % (40-80); PLATELET ESTIMATE NORMAL
[2017-08-12 22:32] LABS: APPEARANCE CLEAR (CLEAR); COLOR YELLOW (YELLOW); GLUCOSE NEGATIVE (NEGATIVE); NITRITE NEGATIVE (NEGATIVE); PROTEIN NEGATIVE (NEGATIVE); SPECIFIC GRAVITY 1.015 (1.005-1.020)
[2017-08-12 22:33] LABS: BILIRUBIN NEGATIVE (NEGATIVE); KETONE NEGATIVE (NEGATIVE); UROBILINOGEN NORMAL (NORMAL)
[2017-08-12 22:34] LABS: BACTERIA MODERATE /hpf (NONE SEEN); RED CELLS - URINE 0-5 /hpf (0-5)
--- NOTE | 2017-08-13 02:16 | NUR ---
REC'D FROM ER. ALERT AND ORIENTED X3. DENIED PAIN AT THIS TIME. TRANSFERED TO THE BED. RIGHT SIDE OF NECK IS RED AND SWOLLEN. THERE IS A DRESSING ON BOTTOM. DID NOT REMOVED. REPORTED TO DELORIS REGALADO. HAS TANG THAT CAME FROM HOME. PERINEAL REGION IS RED AND EXCORAIATED. DENIED NEEDS AT THIS TIME. INSTRUCTED TO CALL IF NEEDED ANYTHING, VERBALIZED UNDERSTANDING. BED LOW, LOCKED, CALL LIGHT IN REACH.
[2017-08-13 04:00] VITALS: BP 125/57
[2017-08-13 05:46] VITALS: BP 122/55; BMI 37.0
--- NOTE | 2017-08-13 06:13 | NUR ---
FABRICIO RN AND I REMOVED THE DRESSING FROM BOTTOM, AND IT IS PACKED. LEFT PACKING IN. WOUND LOOKED UNSTAGEABLE. COVERED WITH 4X4 AND ABD PAD. THERE WAS PURULENT DRAINGE. THERE IS A WOUND CONSULT IN PLACE. ALSO PLACED MILEY MAT AND TURNED ON. FALL PRECAUTIONS ARE IN PLACE.
--- NOTE | 2017-08-13 08:04 | NUR ---
AWAKE AND ALERT. ORIENTED X3. NO C/O AT THIS TIME. LUNGS ARE CLEAR BIALTERALLY, NO COUGH NOTED. SKIN IS INTACT WITHOUT REDNESS EXCEPT STAGE 2 TO COCCYX AREA WHICH HAS A DRY INTACT DRESSING IN PLACE AND REDNESS NOTED TO RIGHT SIDE OF NECK WHCIH IS SLIGHTLY WARM BUT INTACT. SL TO LEFT HAND IS PATENT WITHOUT REDNESS AT INSERTION SITE. DENIES NEEDS.
[2017-08-13 08:49] VITALS: BP 143/61
--- NOTE | 2017-08-13 09:00 | NUR ---
IV FOUND TO OUT WITH CATHETER INTACT. WILL RESITE.
--- NOTE | 2017-08-13 10:30 | NUR ---
RESTING QUIELTLY WITH EYES CLOSED. DENIES NEEDS.
[2017-08-13 10:38] LABS: BASOPHILS 0.1 % (0-2); EOSINOPHILS 0 % (0-7); HEMOGLOBIN 9.1 g/dL (13.5-17.5); IMMATURE GRANULOCYTES 0.5 % (0-5); LYMPHOCYTES 3.4 % (15-50); MCH 31.7 pg (26.0-34.0); MCHC 32.5 g/dL (31.0-37.0); MCV 97.6 fL (80.0-100.0); MEAN PLATELET VOLUME 11.1 fL (7.4-10.4); MONOCYTES 3.3 % (2-11); NEUTROPHILS 92.7 % (40-80); PLATELET COUNT 212 10x3/uL (130-400); RBC 2.87 10x6/uL (4.20-6.10); RDW 15.7 % (11.5-14.5); WBC 34.9 10x3/uL (4.8-10.8)
[2017-08-13 10:48] LABS: ALBUMIN 1.8 g/dL (3.4-5.0); ANION GAP 15.8 mmol/L (8-16); BILIRUBIN - TOTAL 0.7 mg/dL (0.2-1.3); CALCIUM 9.7 mg/dL (8.5-10.1); CREATININE - SERUM 2.3 mg/dL (0.6-1.3); MAGNESIUM - SERUM 1.8 mg/dL (1.8-2.4); PHOSPHOROUS 3.6 mg/dL (2.5-4.9); POTASSIUM - SERUM 3.8 mmol/L (3.5-5.1); PROTEIN - SERUM 6.4 g/dL (6.4-8.2)
--- NOTE | 2017-08-13 12:06 | NUR ---
FSBS 242. GIVEN 4 UNITS REGULAR INSULIN SUBQ PER SS.
[2017-08-13 13:07] VITALS: Ht 185.4 cm; Wt 127.0 kg
--- NOTE | 2017-08-13 13:07 | NUR ---
Wound care consult: Pt is noted to have a stage 3 pressure injury on sacrum. It appears to have healed some d/t scarring of surrounding tissue. Wound measures 5cm x 5cm x 1.5cm x 3cm from 12-3 oclock. The wound bed is beefy red. There is no odor. Moderate serous drainage noted on dressing. Pt has home health changing dressing at home with wet to dry packing using Dakins 1/4 strength solution. Recommend continuing the same treatment during hospital stay. Right facial edema and redness is noted also. No open wounds noted in this area. After dressing was applied, pt was repositioned to his left side. Wound care will continue to monitor.
[2017-08-13 13:46] VITALS: BP 131/53
--- NOTE | 2017-08-13 17:00 | NUR ---
FSBS 185. GIVEN 2 UNITS REGULAR SUBQ PER SS.
--- NOTE | 2017-08-13 19:35 | NUR ---
A&O, DENIES NEEDS, VERY CH[place] LAG[place]ON, NO DISTRESS NOTED, DENIES PAIN AT THIS TIME, CALL LIGHT IN REACH, BED LOWEST POSITION, WILL CONTINUE TO MONITOR
[2017-08-13 20:00] VITALS: BP 138/61
--- NOTE | 2017-08-13 21:30 | NUR ---
PLACED PT ON TELEMETRY, DENIES NEEDS, BED LOWEST POSITON, CALL LIGHTIN REACH, WILL CONTINUE TO MONITOR
--- NOTE | 2017-08-13 23:03 | NUR ---
SLEEPING, NO DISTRESS NOTED, BREATHING EVEN UNLABORED,
--- NOTE | 2017-08-14 01:03 | NUR ---
SLEEPING, NO DITRESS NOTED, CALL LIGHT IN REACH, WILL CONTINEU TO MONITOR
--- NOTE | 2017-08-14 03:44 | NUR ---
SLEEPING, NO DISTRESS NOTED, BREATHING EVEN UNLABORED, CALL LIGHT IN REACH
[2017-08-14 04:00] VITALS: BP 121/58
[2017-08-14 05:25] LABS: BASOPHILS 0 % (0-2); EOSINOPHILS 0.3 % (0-7); HEMATOCRIT 24.1 % (42.0-54.0); HEMOGLOBIN 7.8 g/dL (13.5-17.5); IMMATURE GRANULOCYTES 0.3 % (0-5); LYMPHOCYTES 6.3 % (15-50); MCH 31.3 pg (26.0-34.0); MCHC 32.4 g/dL (31.0-37.0); MCV 96.8 fL (80.0-100.0); MEAN PLATELET VOLUME 11.2 fL (7.4-10.4); MONOCYTES 3.6 % (2-11); NEUTROPHILS 89.5 % (40-80); PLATELET COUNT 194 10x3/uL (130-400); RBC 2.49 10x6/uL (4.20-6.10); RDW 15.7 % (11.5-14.5); WBC 28.8 10x3/uL (4.8-10.8)
[2017-08-14 05:38] LABS: ALBUMIN 1.6 g/dL (3.4-5.0); ANION GAP 16.5 mmol/L (8-16); BILIRUBIN - TOTAL 0.47 mg/dL (0.2-1.3); CALCIUM 8.9 mg/dL (8.5-10.1); CARBON DIOXIDE 22.1 mmol/L (21.0-32.0); CREATININE - SERUM 2.2 mg/dL (0.6-1.3); POTASSIUM - SERUM 3.6 mmol/L (3.5-5.1)
--- NOTE | 2017-08-14 07:00 | NUR ---
REPORT RECIEVED ASSUMED CARE. PATIENT IN BED WITH IV ITNACT. NO COMPLAINTS AT THIS TIME. CALL LIGHT WITHIN REACH.
[2017-08-14 09:03] VITALS: BP 118/37
[2017-08-14 12:32] VITALS: BP 122/59
[2017-08-14 16:48] VITALS: BP 128/53
--- NOTE | 2017-08-14 18:50 | NUR ---
PATIENT IN BED WITH IV INTACT. NO COMPLAINTS OR SIGNS OF DISTRESS. NOTIFED DR. DEL TORO ABOUT GRAM POSTIVE COCCI IN [place] CULTURES. NO NEW ORDERS AT THIS TIME. CALL LIGHT WITHIN REACH.
--- NOTE | 2017-08-14 19:40 | NUR ---
SLEEPING, NO DISTRESS NOTED, BREATHING SHALLOW UNLABORED, CALL LLIGHT IN REACH, BED LOWEST POSITION, WILL CONTINUE TO MONITOR
[2017-08-14 20:00] VITALS: BP 104/47
[2017-08-15] VITALS (11 sets, daily range): BP systolic 115–145; BP diastolic 49–73
--- NOTE | 2017-08-15 03:00 | NUR ---
PT RESTING QUIETLY, EYES CLOSED. RESP EVEN, UNLABORED. NO DISTRESS NOTED. CONTINUE PAPERBOARD MACHINE OPERATOR'S PLAN OF CARE.
--- NOTE | 2017-08-15 06:31 | NUR ---
AWAKE AND WATCHING TV, DENIES NEEDS
--- NOTE | 2017-08-15 07:00 | NUR ---
REPORT RECIEVED ASSUMED CARE. PATIENT IN BED WITH IV INTACT. NO COMPLAINTS AT THIS TIME CALL LIGHT WITHIN REACH.
[2017-08-15 08:08] LABS: BASOPHILS 0.1 % (0-2); EOSINOPHILS 3.5 % (0-7); HEMATOCRIT 22.4 % (42.0-54.0); IMMATURE GRANULOCYTES 0.3 % (0-5); LYMPHOCYTES 10.4 % (15-50); MCH 32.2 pg (26.0-34.0); MCHC 33.5 g/dL (31.0-37.0); MCV 96.1 fL (80.0-100.0); MEAN PLATELET VOLUME 10.9 fL (7.4-10.4); MONOCYTES 4.4 % (2-11); NEUTROPHILS 81.3 % (40-80); PLATELET COUNT 180 10x3/uL (130-400); RBC 2.33 10x6/uL (4.20-6.10); RDW 15.5 % (11.5-14.5)
[2017-08-15 08:23] LABS: ALBUMIN 1.4 g/dL (3.4-5.0); ANION GAP 13.5 mmol/L (8-16); BILIRUBIN - TOTAL 0.3 mg/dL (0.2-1.3); CALCIUM 8.8 mg/dL (8.5-10.1); CARBON DIOXIDE 22.8 mmol/L (21.0-32.0); CREATININE - SERUM 1.9 mg/dL (0.6-1.3); POTASSIUM - SERUM 3.3 mmol/L (3.5-5.1); PROTEIN - SERUM 5.1 g/dL (6.4-8.2)
[2017-08-15 08:32] LABS: HEMOGLOBIN 7.5 g/dL (13.5-17.5); WBC 11.5 10x3/uL (4.8-10.8)
--- NOTE | 2017-08-15 14:30 | NUR ---
PATIENT IV OUT. CATH TIP INTACT. WILL RESTART WILY. CALL LIGHT WITHIN REACH. BSCDS ON AND WORKING.
--- NOTE | 2017-08-15 16:00 | NUR ---
NEW IV STARTED IN RIGHT AC. BLOOD DRAWN FROM SITE FOR TYPE AND SCREEN DUE TO LAB NOT BEING ABLE TO DRAW BLOOD FROM PATIENT. PATIENT IS TO RECIEVE 2 UNITS. 20 G STARTED X 1 STICK. BSCDS ON AND WORKING. CALL LIGHTW ITHIN REACH.
--- NOTE | 2017-08-15 18:55 | NUR ---
PATIENT IN BED WITH IV INTACT. NO COMPLAINTS AT THIS TIME. NOTIFIED NIGHT NURSE PATIENT IS TO RECIEVE 2 UNITS. BLOOD NOT READY YET. PATIENT HAS NO COMPLAINTS OR SIGNS OF DISTRESS. CALL LIGHT WITHIN REACH.
[2017-08-16] VITALS (7 sets, daily range): BP systolic 135–148; BP diastolic 62–93
--- NOTE | 2017-08-16 03:26 | NUR ---
INITIATED SECOND UNIT OF PRBC. PATIENT IS AWAKE AND ALERT. NO SIGNS OF DISTRESS NOTED. HE DENIES NEEDS AT THIS TIME.
--- NOTE | 2017-08-16 05:00 | NUR ---
TANG CARE COMPLETED USING TANG CARE WIPES. TURNED PATIENT TO HIS LEFT SIDE POSITIONED WITH PILLOWS BEHIND HIS BACK, AND BETWEEN HIS LEGS. PATIENT VERBALIZED FEELING COMFORTABLE. PATIENT DENIES ANY OTHER NEEDS AT THIS TIME.
--- NOTE | 2017-08-16 07:10 | NUR ---
REPORT RECEIVED, ASSUMED CARE OF PT. CONTACT ISOLATION IN PLACE. RESTING, EASILY AROUSED, VERY HARD OF HEARING. R AC IV INFUSING ORDERED, DRSG C/D/I. R LOWER JAW/FACIAL SWELLING NOTED WITH MINIMAL PAIN 12/13. TANG CATHETER IN PLACE. TELEMETRY IN PLACE WITH PACED RHYTHM. NO NEEDS VOICED AT THIS TIME. BED IN LOWEST POSITION, SIDE RAILS UP X 2, CALL LIGHT WITHIN REACH.
[2017-08-16 08:48] LABS: BASOPHILS 0.2 % (0-2); EOSINOPHILS 2.9 % (0-7); IMMATURE GRANULOCYTES 0.9 % (0-5); LYMPHOCYTES 11.7 % (15-50); MCH 30.5 pg (26.0-34.0); MCHC 33.2 g/dL (31.0-37.0); MEAN PLATELET VOLUME 10.8 fL (7.4-10.4); MONOCYTES 5.7 % (2-11); NEUTROPHILS 78.6 % (40-80); PLATELET COUNT 192 10x3/uL (130-400); RDW 16.7 % (11.5-14.5); WBC 10.8 10x3/uL (4.8-10.8)
[2017-08-16 08:50] LABS: HEMATOCRIT 31.9 % (42.0-54.0); HEMOGLOBIN 10.6 g/dL (13.5-17.5); MCV 91.9 fL (80.0-100.0); RBC 3.47 10x6/uL (4.20-6.10)
[2017-08-16 09:03] LABS: ALBUMIN 1.5 g/dL (3.4-5.0); ANION GAP 13.5 mmol/L (8-16); BILIRUBIN - TOTAL 0.54 mg/dL (0.2-1.3); CALCIUM 9.1 mg/dL (8.5-10.1); CARBON DIOXIDE 23.2 mmol/L (21.0-32.0); CREATININE - SERUM 1.8 mg/dL (0.6-1.3); POTASSIUM - SERUM 3.7 mmol/L (3.5-5.1); PROTEIN - SERUM 5.6 g/dL (6.4-8.2)
--- NOTE | 2017-08-16 22:00 | NUR ---
PATIENT HAD AN INCONTINENT BOWEL MOVEMENT, STOOL WAS LARGE AND SOFT GREENISH-BROWN IN COLOR. THE STOOL MADE CONTACT WITH DRESSING ON PATIENT'S BOTTOM. WITH ASSISTANCE FROM PRODUCTION TEAM LEADER, CLEANED PATIENT UP FROM THE STOOL. THE PRODUCTION TEAM LEADER ASSISTING PATIENT LAYING ON HIS SIDE WHILE I CHANGED HIS DRESSING. REMOVED THE SOILED DRESSING. CLEANED ALL WOUNDS WITH STERILE WOUND CHILD DEVELOPMENT CONSULTANT AND 4X4 GAUZE. PATIENT'S BOTTOM IS EXCORIATED AROUND WOUNDS. PATIENT HAS A STAGE 3 PRESSURE ULCER TO COCCYX, MEASURED WOUND: 2.5CM X 2CM X 3.5CM, THE WOUND IS BEEFY RED, NO FOUL ODOR NOTED, ONLY A SMALL AMOUNT OF BLOODY DRAINAGE NOTED ON THE PACKING THAT I REMOVED FROM THE WOUND. THE OUTER RIGHT SIDE OF THE WOUND HAS A STAGE 2 PRESSURE ULCER, MEASURED THE STAGE 2: 3.5CM X 2CM. THE OUTER LEFT SIDE OF THE WOUND HAS A STAGE 2 PRESSURE ULCER, MEASURED THE STAGE 2: 3.5CM X 3.5CM. THE LEFT BUTTOCKS HAS A STAGE 2 PRESSURE ULCER MEASURED 3.5CM X 2.5CM. PACKED THE STAGE 3 PRESSURE ULCER USING KERLIX MOISTENED WITH DAKINS SOLUTION, AND COVERED WITH DRY 4X4 GAUZE AND AN ABD PAD. ON THE LEFT LATERAL BUTTOCKS, THERE IS SKIN PEELING, MADE SURE TO COVER THAT AREA WITH THE ABD PAD SO PREVENT THE TAPE FROM COMING IN CONTACT. TURNED PATIENT TO HIS RIGHT SIDE, POSITIONED WITH PILLOWS. HE DENIES NEEDS. CALL LIGHT IN REACH.
[2017-08-17] VITALS: BP 150/82
--- NOTE | 2017-08-17 00:07 | NUR ---
TURNED PATIENT TO HIS LEFT SIDE POSITIONED WITH PILLOWS. PATIENT DENIES NEEDS AT THIS TIME.
--- NOTE | 2017-08-17 02:49 | NUR ---
WENT IN PATIENT'S ROOM TO TURN HIM, WOKE HIM UP AT 0227. PATIENT'S PAD IS WET WITH URINE, PATIENT STATED "I DO NOT THINK MY CATHETER IS WORKING." URINE IS LEAKING OUT FROM AROUND CATHETER. WITH ASSIST FROM EQUIPMENT TECH CHANGED PATIENT'S LINENS, PATIENT HAD A SMALL BM, CLEANED PATIENT. CHANGED HIS GOWN. REMOVED TANG CATHETER, IT IS A 16FR WITH A 5-10ML BULB. REPLACED WITH A 16 FR TANG CATHETER, 10ML BULB. STERILE TECHNIQUE MAINTAINED. PATIENT TOLERATED WELL. TURNED PATIENT TO HIS RIGHT SIDE POSITIONED WITH PILLOWS. PATIENT DENIES NEEDS AT THIS TIME. BED IN LOWEST POSITION, CALL LIGHT IN REACH. BED RIALS UP X'S 2.
[2017-08-17 04:00] VITALS: BP 141/76
[2017-08-17 05:26] LABS: BASOPHILS 0.2 % (0-2); EOSINOPHILS 1.9 % (0-7); HEMATOCRIT 33.3 % (42.0-54.0); IMMATURE GRANULOCYTES 2.8 % (0-5); LYMPHOCYTES 14.3 % (15-50); MCH 30.6 pg (26.0-34.0); MCV 92.5 fL (80.0-100.0); MEAN PLATELET VOLUME 11.2 fL (7.4-10.4); MONOCYTES 6.6 % (2-11); NEUTROPHILS 74.2 % (40-80); PLATELET COUNT 229 10x3/uL (130-400); RDW 17.3 % (11.5-14.5); WBC 11.6 10x3/uL (4.8-10.8)
[2017-08-17 06:08] LABS: ALBUMIN 1.6 g/dL (3.4-5.0); ANION GAP 14.7 mmol/L (8-16); BILIRUBIN - TOTAL 0.42 mg/dL (0.2-1.3); CALCIUM 8.3 mg/dL (8.5-10.1); CARBON DIOXIDE 22.8 mmol/L (21.0-32.0); CREATININE - SERUM 1.7 mg/dL (0.6-1.3); POTASSIUM - SERUM 3.5 mmol/L (3.5-5.1)
--- NOTE | 2017-08-17 07:05 | NUR ---
REPORT RECEIVED, ASSUMED CARE OF PT. CONTACT ISOLATION PRECAUTIONS IN PLACE. RESTING, EASILY AROUSED. R AC IV INFUSING FLUIDS ORDERED, DRSG C/D/I. TANG CATHETER IN PLACE, PATENT, DRAINING. MINIMAL R FACIAL SWELLING NOTED. NO NEEDS VOICED AT THIS TIME. BED IN LOWEST POSITION, SIDE RAILS UP X 2, CALL LIGHT WITHIN REACH.
[2017-08-17 08:14] VITALS: BP 153/89
[2017-08-17 12:13] VITALS: BP 153/90
[2017-08-17 15:33] VITALS: BP 154/95
[2017-08-17 20:00] VITALS: BP 113/79
--- NOTE | 2017-08-17 20:10 | NUR ---
UPON ENTERING ROOM PATIENT RESTING QUIETLY WITH EYES CLOSED LAYING ON HIS LEFT SIDE. PATIENT HAD AN INCONTINENT BOWEL MOVEMENT WITH ASSIST FROM SHUTTLER CLEANED PATIENT AND CHANGED BLUE CHUCKS. HIS DRESSING HAS STOOL ON IT. REMOVED THE DRESSING. CLEANED WITH STERILE WOUND CERAMIC COATER MACHINE AND PATTED DRY WITH 4X4 GAUZE. WIPED SKIN WITH SKIN PROTECTANT WHERE THE TAPE WILL BE APPLIED. CHANGED DRESSING. PACKED WITH KERLIX MOISTENED WITH DAKINS SOLUTION. COVERED WITH 1 PACKAGE OF 4X4 GAUZE AND AN ABD PAD. TAPED WITH MEDIPORE TAPE.
--- NOTE | 2017-08-17 20:15 | NUR ---
TURNED PATIENT TO HIS RIGHT SIDE POSITIONED WITH PILLOWS BEHIND HIS BACK AND A PILLOW BETWEEN HIS LEGS AT THE KNEES.
--- NOTE | 2017-08-17 23:52 | NUR ---
PATIENT REQUESTED TO BE TURNED FROM HIS LEFT SIDE TO HIS BACK. DEVIL TENDER AND ANOTHER NURSE ASSISTED PATIENT ONTO HIS BACK.
[2017-08-18] VITALS: BP 147/83
--- NOTE | 2017-08-18 00:45 | NUR ---
TURNED PATIENT TO HIS RIGHT SIDE POSITIONED WITH PILLOWS. PATIENT DENIES NEEDS AT THIS TIME. BED IN LOWEST POSITION, CALL LIGHT IN REACH.
--- NOTE | 2017-08-18 02:00 | NUR ---
PATIENT STATED HIS KNEES ARE UNCOMFORTABLE, REPOSITONED PATIENT FURTHER ON HIS LEFT SIDE, REPOSTIONED THE PILLOWS AND PUT A PILLOW BETWEEN HIS LEGS SEPARTING HIS KNEES FROM TOUCHING. PATIENT VERBALIZED THAT HE IS COMFORTABLE. HE DENIES ANY OTHER NEEDS AT THIS TIME. CHANGED IV TUBING. CALL LIGHT IN REACH.
--- NOTE | 2017-08-18 03:40 | NUR ---
COACH OPERATOR TURNED PATIENT TO HIS LEFT SIDE POSITIONED WITH PILLOWS.
[2017-08-18 04:00] VITALS: BP 147/77
--- NOTE | 2017-08-18 04:00 | NUR ---
COMPLETED TANG CARE USING TANG CARE WIPES.
[2017-08-18 06:18] LABS: BASOPHILS 0.1 % (0-2); EOSINOPHILS 1.8 % (0-7); HEMATOCRIT 34.2 % (42.0-54.0); HEMOGLOBIN 11.3 g/dL (13.5-17.5); IMMATURE GRANULOCYTES 3.2 % (0-5); LYMPHOCYTES 14.6 % (15-50); MCH 30.3 pg (26.0-34.0); MCV 91.7 fL (80.0-100.0); MEAN PLATELET VOLUME 10.9 fL (7.4-10.4); MONOCYTES 6.6 % (2-11); NEUTROPHILS 73.7 % (40-80); PLATELET COUNT 228 10x3/uL (130-400); RBC 3.73 10x6/uL (4.20-6.10); RDW 16.8 % (11.5-14.5); WBC 14.2 10x3/uL (4.8-10.8)
--- NOTE | 2017-08-18 06:30 | NUR ---
WAVED AT ME WHEN I WAS WALKING BY HIS ROOM. I STATED "CAN I HELP YOU?" HE STATED "YEAH, I CAN'T GET THE HECK OUT OF THIS BED." I STATED "YOU CANNOT WALK, WHY ARE YOU TRYING TO GET UP?" PATIENT LAUGHED AND STATED "THAT'S A GOOD QUESTION." I STATED "I THINK YOU ARE GETTING A LITTLE CONFUSED." PATIENT STATED "I THINK YOU ARE RIGHT." I STATED "PLEASE DO NOT TRY TO GET OUT OF THE BED." HE STATED "I WON'T." HE DENIES ANY NEEDS AT THIS TIME.
[2017-08-18 06:39] LABS: ALBUMIN 1.7 g/dL (3.4-5.0); ANION GAP 16.4 mmol/L (8-16); BILIRUBIN - TOTAL 0.46 mg/dL (0.2-1.3); CALCIUM 8.8 mg/dL (8.5-10.1); CARBON DIOXIDE 21.1 mmol/L (21.0-32.0); CREATININE - SERUM 1.5 mg/dL (0.6-1.3); POTASSIUM - SERUM 3.5 mmol/L (3.5-5.1); PROTEIN - SERUM 5.1 g/dL (6.4-8.2)
--- NOTE | 2017-08-18 07:00 | NUR ---
REPORT RECIEVED ASSUMED CARE. PATIENT IN BED WITH IV INTACT. NO COMPLAINTS AT THIS TIME. CALL LIGHT WITHIN REACH.
[2017-08-18 07:50] VITALS: BP 142/77
[2017-08-18] MEDS ORDERED: FLORAJEN3 CAPS460 MG PO (14:29)
[2017-08-18] MEDS ORDERED: VIBRAMYCIN 100100 MG PO (14:29)
--- NOTE | 2017-08-18 15:12 | NUR ---
ATTEMPTED TO CALL (RAMIRO) AT [phone], THERE WAS NOT A ANSWER ASKED FOR WAIFE TO CALL ME BACK. AFTER LOOKING INTO HIS PREVIOUS STAYS IN THE HOSPITAL. PATIENT HAS A HOSPITAL BED AND A WALKER. HE USED EMS TO GET HOME LAST TIME AND HE HAS ALSO HAD A OPEN APS CASE WHERE Anahi CABRERA WAS THE VIRTUALIZATION CONSULTANT. CM WILL CONTINUE TO FOLLOW AND ASSIST WITH DISCHARGE PLANNING NEEDS.
--- NOTE | 2017-08-18 15:37 | NUR ---
NUTRITION F/U CHART REVIEWED. PT REMAINS IN ISOLATION, ONLY ~25% INTAKE RECENT MEALS WITH ASSIST. NOTE POSSIBLE DC PLANNING. RD FOLLOWING
--- NOTE | 2017-08-18 16:27 | NUR ---
Patient Name: TU RUIZ Admission Status: ER Accout number: [id number] Admission Date: 08-12-2017 : 1935 Admission Diagnosis:CELLULITIS OF FACE Attending: WANDA MICHEL Current LOS: 6 Anticipated DC Date: Planned Disposition: Primary Insurance: [employer] [facility] Discharge Planning Comments: CM SPOKE WITH DAUGHTER MELODY WHO ANSWERED QUESTIONS FOR ME. PATIENT IS A TOTAL CARE PATIENT WHO LIVES AT HOME WITH HIS AND DAUGHTER MELODY. PATIENT HAS A HOSPITAL BED AND WALKER AT HOME. MELODY SAID THAT HE IS CURRENT WITH [facility]. CM CALLED AND VERIFIED THAT HS IS CURRENT. 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 THEY HAVE A CONTRACT WITH [employer]. MELODY ASSURED ME THAT IT WAS SAFE FOR HER FATHER TO RETURN HOME. PATIENT WILL BE DISCHARGED HOME TODAY VIA EMS. ANY QUESTIONS RELATING TO HER FATHERS CARE PLEASE CALL MELODY AT [phone] Evangelina MEI WITH HOUSE CALLS MELODY (DAUGHTER) [phone] Process Engineering Intern: Mary Aceves
--- NOTE | 2017-08-18 17:00 | NUR ---
PATIENT DISCHARGE INSTRUCTIONS GIVEN TO PATIENT DAUGHTER. VERBALIZED UNDERSTANDING. WENT OVER NEW MEDS. NO QUESTIONS AT THIS TIME. IV REMOVED ON PATIENT AT THIS TIME WITH CATH TIP INTACT. DRESSING CHANGED AND CLEANED UP FROM . TURNED TO SIDE. CALL LIGHT WITHIN REACH.
[2017-08-18 17:17] VITALS: BP 159/89
--- NOTE | 2017-08-18 18:27 | NUR ---
PATIENT LEFT WITH EMT TO AMBULANCE TO DC HOME. PERSONAL BELONGINGS AT BS.
== END 2017-08-18 18:29 | disposition home health service (06) | DRG 603 ==
LOC: D.ER 17:06 → D.MS 22:13
PROVIDERS: Nurse Practitioner Family; ADMIT Emergency Medicine
DX: L03.211 Cellulitis of face (principal); N17.9 Acute kidney failure, unspecified; E87.1 Hypo-osmolality and hyponatremia; R32 Unspecified urinary incontinence; D50.9 Iron deficiency anemia, unspecified; E11.22 Type 2 diabetes mellitus with diabetic chronic kidney disease; N18.9 Chronic kidney disease, unspecified; E11.65 Type 2 diabetes mellitus with hyperglycemia; B95.62 Methicillin resistant Staphylococcus aureus infection as the cause of diseases classified elsewhere; R79.89 Other specified abnormal findings of blood chemistry

== ENCOUNTER → 2017-09-03 14:47 | Outpatient (CLI) | payer MEDICARE ==
[2017-08-13 13:07] VITALS: BMI 36.9
[~2017-09-03 14:47] MED LIST changes: +FLORAJEN3 CAPS460 MG PO; +K-DUR20 MEQ PO; +LASIX40 MG PO; +VIBRAMYCIN 100100 MG PO
[2017-09-03 15:46] LABS: BASOPHILS 0.1 % (0-2); EOSINOPHILS 1.2 % (0-7); HEMATOCRIT 32.6 % (42.0-54.0); HEMOGLOBIN 10.5 g/dL (13.5-17.5); IMMATURE GRANULOCYTES 0.3 % (0-5); LYMPHOCYTES 20.2 % (15-50); MCH 29.7 pg (26.0-34.0); MCHC 32.2 g/dL (31.0-37.0); MCV 92.4 fL (80.0-100.0); MEAN PLATELET VOLUME 10.4 fL (7.4-10.4); MONOCYTES 8.7 % (2-11); NEUTROPHILS 69.5 % (40-80); PLATELET COUNT 199 10x3/uL (130-400); RBC 3.53 10x6/uL (4.20-6.10); RDW 16.6 % (11.5-14.5); WBC 7.5 10x3/uL (4.8-10.8)
[2017-09-03 16:49] LABS: APPEARANCE HAZY (CLEAR); BILIRUBIN NEGATIVE (NEGATIVE); COLOR YELLOW (YELLOW); GLUCOSE NEGATIVE (NEGATIVE); KETONE NEGATIVE (NEGATIVE); NITRITE NEGATIVE (NEGATIVE); PROTEIN TRACE mg/dL (NEGATIVE); SPECIFIC GRAVITY 1.015 (1.005-1.020); UROBILINOGEN NORMAL (NORMAL); WHITE CELLS - URINE >50 /hpf (0-5)
[2017-09-03 16:50] LABS: BACTERIA MODERATE /hpf (NONE SEEN); YEAST >1+ WITH HYPHAE /hpf (NONE SEEN)
== END | disposition home or self-care (01) ==
LOC: D.LABREF 14:47
PROVIDERS: Family Medicine
DX: N39.0 Urinary tract infection, site not specified (principal); Z46.6 Encounter for fitting and adjustment of urinary device; N28.9 Disorder of kidney and ureter, unspecified

== ENCOUNTER 2017-10-03 14:02 | Inpatient (IN) | payer MEDICARE ==
[~2017-10-03] VITALS: Ht 182.9 cm; Wt 105.5 kg
--- NOTE | ~2017-10-03 | EC ---
PATIENT:TU RUIZ DATE OF SERVICE: 10/03/17 SEX: M MEDICAL RECORD: [id number] DATE OF : [birth year] LOCATION:D.M2 D.210 AGE OF PATIENT: 82 ADMISSION DATE: 10/03/17 REFERRING PHYSICIAN: INTERPRETING PHYSICIAN: ROSAS العلي MD ECHOCARDIOGRAM REPORT ECHO CHARGES 4 ECHO COMPLETE CLINICAL DIAGNOSIS: CHF HX OF PACER ECHOCARDIOGRAPHIC MEASUREMENTS (adult normal given) AC root (d.<3.7cm) 3.9 cm LV Septum d (<1.2 cm> 1.3 cm Valve Excursion 1.3 cm LV Septum (systole) 1.5 cm Left Atria (s.<4.0cm> 4.2 cm LVPW d(<1.2cm) 1.5 cm RV (d.<2.3cm) 5.3 cm LVPW (sytole) 1.8 cm LV diastole(<5.6CM) 6.3 cm MV E-F(>70mm/sec) cm LV systole 4.9 cm LVOT Diameter 1.6 cm MV exc.(>10mm) 1.7 cm Est.ejection fraction (50-75%) % Pericardial Effusion N DOPPLER: LVIT cm/sec A 44.0 cm/sec E 102 cm/sec LA cm/sec RVSP 21 mmHg LVOT 98 cm/sec AOP1/2T m/s Asc. Ao 140 cm/sec RVOT cm/sec RA cm/sec PA cm/sec AV Gradient Peak 7.89 mmHg AV Mean 3.43 mmHg AV Area 1.5 cm MV Gradient Peak 4.52 mmHg MV Mean 1.95 mmHg MV Area cm COMMENTS: Abrasive Worker: Beena MCCALL Ux Lead: 4 Dr. العلي TAPE# PACS DATE OF SERVICE: 10/07/2017 PROCEDURE: Transthoracic echocardiogram. FINDINGS: 1. Left ventricle shows asynchronous wall motion consistent with a bundle-branch block and overall ejection fraction of 45% with global hypokinesis. 2. The left atrium is mildly dilated. 3. The mitral valve has mild mitral regurgitation. ECHOCARDIOGRAM REPORT [id number] TU RUIZ 4. Tricuspid valve has trace tricuspid regurgitation. Estimated RVSP is normal. 5. Pulmonic valve is not well visualized. 6. The right atrium is moderately dilated. 7. The right ventricle is moderately to severely dilated. CONCLUSIONS: The patient shows pacer artifact and asynchronous wall motion in the LV with a calculated ejection fraction that is mild to moderately reduced. Evidence of left ventricular hypertrophy. TRANSINT:[id number] Voice Confirmation ID: [id number] DOCUMENT ID: [id number] 10/10/2017 Edited to correct date of service, dmm. ROSAS العلي MD at 1038 CC: [id number] DICTATION DATE: 10/08/17 1158 VALET SERVICE ATTENDANT: 10/08/17 1231 DIS IN 10/08/17 [facility] [address] [place] [address]
[~2017-10-03 14:02] MED LIST changes: -K-DUR20 MEQ PO; -LASIX40 MG PO
[2017-10-03 14:41] LABS: APPEARANCE CLOUDY (CLEAR); BILIRUBIN NEGATIVE (NEGATIVE); COLOR YELLOW (YELLOW); GLUCOSE NEGATIVE (NEGATIVE); KETONE NEGATIVE (NEGATIVE); NITRITE NEGATIVE (NEGATIVE); PROTEIN 1+ mg/dL (NEGATIVE); UROBILINOGEN NORMAL (NORMAL)
[2017-10-03 14:42] LABS: BACTERIA MODERATE /hpf (NONE SEEN); RED CELLS - URINE 0-5 /hpf (0-5); WHITE CELLS - URINE >50 /hpf (0-5)
[2017-10-03 14:57] LABS: BASOPHILS 0.1 % (0-2); EOSINOPHILS 0.7 % (0-7); HEMATOCRIT 25.6 % (42.0-54.0); HEMOGLOBIN 8.2 g/dL (13.5-17.5); IMMATURE GRANULOCYTES 0.3 % (0-5); LYMPHOCYTES 11.5 % (15-50); MCH 30.8 pg (26.0-34.0); MCV 96.2 fL (80.0-100.0); MONOCYTES 6.5 % (2-11); NEUTROPHILS 80.9 % (40-80); PLATELET COUNT 245 10x3/uL (130-400); RBC 2.66 10x6/uL (4.20-6.10); RDW 19.9 % (11.5-14.5); WBC 14.8 10x3/uL (4.8-10.8)
[2017-10-03 15:12] LABS: ALBUMIN 1.5 g/dL (3.4-5.0); ANION GAP 8.4 mmol/L (8-16); BILIRUBIN - TOTAL 0.48 mg/dL (0.2-1.3); CALCIUM 9.8 mg/dL (8.5-10.1); CARBON DIOXIDE 29.8 mmol/L (21.0-32.0); CREATININE - SERUM 1.9 mg/dL (0.6-1.3); POTASSIUM - SERUM 5.2 mmol/L (3.5-5.1); PROTEIN - SERUM 5.6 g/dL (6.4-8.2)
[2017-10-03 21:11] VITALS: BP 131/57
[2017-10-04 01:27] VITALS: BP 125/54
[2017-10-04 02:25] VITALS: Ht 182.9 cm; Wt 105.5 kg
[2017-10-04 05:08] VITALS: BP 119/54
[2017-10-04 07:54] VITALS: BP 111/54
[2017-10-04 11:29] LABS: BASOPHILS 0.1 % (0-2); EOSINOPHILS 0.6 % (0-7); HEMATOCRIT 23.1 % (42.0-54.0); IMMATURE GRANULOCYTES 0.3 % (0-5); LYMPHOCYTES 12.9 % (15-50); MCV 96.7 fL (80.0-100.0); MEAN PLATELET VOLUME 9.6 fL (7.4-10.4); MONOCYTES 7.4 % (2-11); NEUTROPHILS 78.7 % (40-80); PLATELET COUNT 231 10x3/uL (130-400); RBC 2.39 10x6/uL (4.20-6.10); RDW 19.4 % (11.5-14.5); WBC 11.7 10x3/uL (4.8-10.8)
[2017-10-04 11:33] LABS: HEMOGLOBIN 7.4 g/dL (13.5-17.5)
[2017-10-04 11:55] LABS: ANION GAP 7.9 mmol/L (8-16); CALCIUM 9.7 mg/dL (8.5-10.1); CARBON DIOXIDE 29.1 mmol/L (21.0-32.0); CREATININE - SERUM 1.9 mg/dL (0.6-1.3)
[2017-10-04 12:11] LABS: % SATURATION 28 % (15-55); IRON 30 ug/dl (35-150); TOTAL IRON BIND CAPACITY 104 ug/dl (260-445); UNSAT IRON BIND CAPACITY 74 ug/dl (150-375)
[2017-10-04 12:33] VITALS: BP 100/57
[2017-10-04 16:10] VITALS: BP 117/58
[2017-10-04 20:58] VITALS: BP 128/53
[2017-10-05 02:04] VITALS: BP 134/88
[2017-10-05 05:19] VITALS: BP 139/73
[2017-10-05 07:14] LABS: BASOPHILS 0.1 % (0-2); EOSINOPHILS 1.6 % (0-7); HEMATOCRIT 27.7 % (42.0-54.0); IMMATURE GRANULOCYTES 0.5 % (0-5); LYMPHOCYTES 22.1 % (15-50); MCH 30.7 pg (26.0-34.0); MCHC 32.9 g/dL (31.0-37.0); MEAN PLATELET VOLUME 9.6 fL (7.4-10.4); MONOCYTES 8.4 % (2-11); NEUTROPHILS 67.3 % (40-80); PLATELET COUNT 204 10x3/uL (130-400); RDW 18.6 % (11.5-14.5)
[2017-10-05 07:15] LABS: HEMOGLOBIN 9.1 g/dL (13.5-17.5); MCV 93.6 fL (80.0-100.0); RBC 2.96 10x6/uL (4.20-6.10)
[2017-10-05 07:33] LABS: ANION GAP 13.1 mmol/L (8-16); CALCIUM 9.5 mg/dL (8.5-10.1); CARBON DIOXIDE 24.8 mmol/L (21.0-32.0); CREATININE - SERUM 1.9 mg/dL (0.6-1.3); POTASSIUM - SERUM 4.9 mmol/L (3.5-5.1)
[2017-10-05 12:25] VITALS: BP 136/63
[2017-10-05 14:54] LABS: HEMOGLOBIN 9.5 g/dL (13.5-17.5)
[2017-10-05 16:18] VITALS: BP 125/66
[2017-10-05 20:50] VITALS: BP 141/61
[2017-10-06 01:45] VITALS: BP 138/62
[2017-10-06 06:25] LABS: BASOPHILS 0.1 % (0-2); EOSINOPHILS 1.7 % (0-7); HEMATOCRIT 28.9 % (42.0-54.0); HEMOGLOBIN 9.4 g/dL (13.5-17.5); IMMATURE GRANULOCYTES 0.2 % (0-5); MCHC 32.5 g/dL (31.0-37.0); MCV 95.4 fL (80.0-100.0); MEAN PLATELET VOLUME 10.5 fL (7.4-10.4); RBC 3.03 10x6/uL (4.20-6.10); RDW 18.4 % (11.5-14.5); WBC 8.9 10x3/uL (4.8-10.8)
[2017-10-06 06:26] LABS: INR 1.03 (0.85-1.17); PLATELET COUNT 258 10x3/uL (130-400); PROTIME 13.1 SECONDS (11.6-15.0)
[2017-10-06 06:31] LABS: ANION GAP 12.1 mmol/L (8-16); CALCIUM 9.8 mg/dL (8.5-10.1); CARBON DIOXIDE 25.4 mmol/L (21.0-32.0); CREATININE - SERUM 1.9 mg/dL (0.6-1.3); POTASSIUM - SERUM 4.5 mmol/L (3.5-5.1)
[2017-10-06 07:01] VITALS: BP 130/60
[2017-10-06 12:43] VITALS: BP 145/69
[2017-10-06 17:03] LABS: HEMOGLOBIN 9.4 g/dL (13.5-17.5)
[2017-10-06 17:32] VITALS: BP 158/76
[2017-10-06 20:00] VITALS: BP 147/82
[2017-10-07] VITALS: BP 154/58
[2017-10-07 04:00] VITALS: BP 135/68
[2017-10-07 05:32] LABS: BASOPHILS 0.1 % (0-2); EOSINOPHILS 1.1 % (0-7); HEMATOCRIT 27.7 % (42.0-54.0); HEMOGLOBIN 9.1 g/dL (13.5-17.5); IMMATURE GRANULOCYTES 0.3 % (0-5); LYMPHOCYTES 15.9 % (15-50); MCH 30.8 pg (26.0-34.0); MCHC 32.9 g/dL (31.0-37.0); MCV 93.9 fL (80.0-100.0); MEAN PLATELET VOLUME 10.2 fL (7.4-10.4); MONOCYTES 8.8 % (2-11); NEUTROPHILS 73.8 % (40-80); PLATELET COUNT 238 10x3/uL (130-400); RBC 2.95 10x6/uL (4.20-6.10); RDW 17.9 % (11.5-14.5); WBC 9.6 10x3/uL (4.8-10.8)
[2017-10-07 05:51] LABS: ANION GAP 12.6 mmol/L (8-16); CALCIUM 9.6 mg/dL (8.5-10.1); CARBON DIOXIDE 25.1 mmol/L (21.0-32.0); CREATININE - SERUM 1.8 mg/dL (0.6-1.3)
[2017-10-07 06:06] LABS: POTASSIUM - SERUM 3.7 mmol/L (3.5-5.1)
[2017-10-07 10:18] VITALS: BP 146/76
[2017-10-07 17:37] VITALS: BP 106/52
[2017-10-07 17:51] VITALS: BP 130/60
[2017-10-07 22:33] VITALS: BP 128/58
[2017-10-08 04:40] VITALS: BP 116/64
[2017-10-08 05:37] LABS: BASOPHILS 0.1 % (0-2); EOSINOPHILS 2.6 % (0-7); HEMATOCRIT 27.8 % (42.0-54.0); HEMOGLOBIN 9.1 g/dL (13.5-17.5); IMMATURE GRANULOCYTES 0.3 % (0-5); LYMPHOCYTES 20.4 % (15-50); MCHC 32.7 g/dL (31.0-37.0); MCV 94.6 fL (80.0-100.0); MEAN PLATELET VOLUME 9.7 fL (7.4-10.4); MONOCYTES 10.4 % (2-11); NEUTROPHILS 66.2 % (40-80); RBC 2.94 10x6/uL (4.20-6.10); RDW 17.9 % (11.5-14.5); WBC 7.2 10x3/uL (4.8-10.8)
[2017-10-08 05:55] LABS: PLATELET COUNT 190 10x3/uL (130-400)
[2017-10-08 05:57] LABS: ANION GAP 10.8 mmol/L (8-16); CALCIUM 9.4 mg/dL (8.5-10.1); CREATININE - SERUM 1.6 mg/dL (0.6-1.3); POTASSIUM - SERUM 3.8 mmol/L (3.5-5.1)
[2017-10-08 07:21] LABS: FOLATE (FOLIC ACID) - SERUM 11.9 ng/mL (>3.0)
[2017-10-08 07:57] VITALS: BP 131/73
[2017-10-08 11:19] VITALS: BP 137/58
[2017-10-08 14:31] LABS: HEMATOCRIT 26.6 % (42.0-54.0); HEMOGLOBIN 8.7 g/dL (13.5-17.5)
[2017-10-08 15:54] VITALS: BP 119/054
== END 2017-10-08 14:52 | disposition home health service (06) | DRG 377 ==
LOC: D.ER 14:02 → D.M2 18:19
PROVIDERS: Emergency Medicine; Family Medicine; Internal Medicine Gastroenterology; Internal Medicine Nephrology
PROC: 0D598ZZ Destruction of Duodenum, Via Natural or Artificial Opening Endoscopic (ICD-10-PCS; principal; 2017-10-06 08:34)
DX: K26.0 Acute duodenal ulcer with hemorrhage (principal); I50.33 Acute on chronic diastolic (congestive) heart failure; N39.0 Urinary tract infection, site not specified; D62 Acute posthemorrhagic anemia; E87.1 Hypo-osmolality and hyponatremia; N17.9 Acute kidney failure, unspecified; K44.9 Diaphragmatic hernia without obstruction or gangrene; K29.00 Acute gastritis without bleeding; K20.9 Esophagitis, unspecified; K25.9 Gastric ulcer, unspecified as acute or chronic, without hemorrhage or perforation; E03.9 Hypothyroidism, unspecified; E11.22 Type 2 diabetes mellitus with diabetic chronic kidney disease; E11.65 Type 2 diabetes mellitus with hyperglycemia; N18.3 Chronic kidney disease, stage 3 (moderate); E87.5 Hyperkalemia; D50.9 Iron deficiency anemia, unspecified; I50.9 Heart failure, unspecified; Z86.73 Personal history of transient ischemic attack (TIA), and cerebral infarction without residual deficits; Z85.46 Personal history of malignant neoplasm of prostate; E86.0 Dehydration

== ENCOUNTER 2017-11-03 23:07 | Inpatient (IN) | payer MEDICARE ==
[~2017-11-03] VITALS: Ht 185.4 cm; Wt 102.2 kg
--- NOTE | ~2017-11-03 | CN ---
PATIENT NAME:TU RUIZ MEDICAL RECORD: [id number] : 39 LOCATION:DMore D.2133 ADMIT DATE: 11/04/17 ACCOUNT: [id number] CONSULTING PHYSICIAN: THAO HORNER MD REFERRING PHYSICIAN: ANGEL SCHULZ MD DATE OF CONSULTATION: 11/05/2017 DIAGNOSES: 1. Shortness of breath, dyspnea on exertion. 2. Diastolic dysfunction. 3. Mild systolic dysfunction with ejection fraction of 45%. 4. History of gastrointestinal bleeding. 5. History of cerebrovascular accident. 6. Hyperlipidemia. 7. Hypertension. HISTORY OF PRESENT ILLNESS: This is a gentleman who presents with shortness of breath, dyspnea on exertion. He had an echo a month ago showed an ejection fraction 45%, diastolic dysfunction. It did not show pulmonary hypertension, this is mentioned in the history and physical. The pulmonary pressure was estimated at 21 mmHg. He has received diuresis, does not appear that he is on an ongoing diuretic therapy as an outpatient. PHYSICAL EXAMINATION: GENERAL APPEARANCE: Well-nourished, well-developed, appears stated age. Level of distress, comfortable. PSYCHIATRIC: Mental status, alert, normal affect. Orientation, oriented to time, place and person. EYES: Lids and conjunctiva, noninjected. No discharge, no pallor. ENT: Lips, teeth, gums, normal dentition. Oropharynx, no cyanosis, no pallor. NECK: Carotid arteries, bilateral normal upstroke, no bruits, no thrills. JUGULAR VEINS: No jugular venous pressure or distention. CERVICAL LYMPH NODES: Nontender, nonenlarged. THYROID: Not enlarged. Nontender. No nodules. LUNGS: Respiratory effort, unlabored. CHEST: Normal curvature. No thoracic deformity. No chest wall tenderness. Percussion, resonant. Auscultation, clear. No wheezes, no rales, no rhonchi. CARDIOVASCULAR: Precordial exam, nondisplaced. No heaves or pericardial thrills. Rate and rhythm, regular. Heart sounds, normal S1, normal S2. No S3, no gallop, no rub. Systolic murmur, not heard. Diastolic murmur, not heard. EXTREMITIES: No cyanosis, no edema. Peripheral pulses, full and equal in all extremities, except as noted. No bruits appreciated. ABDOMEN: Soft, nondistended. Normal aorta. No bruit. Nontender. No masses. Liver, nontender, no hepatomegaly. Spleen, nontender, no splenomegaly. MUSCULOSKELETAL: No joint tenderness. No joint swelling. No erythema. NEUROLOGICAL: Normal gait, normal strength, normal tone. OVERALL IMPRESSION: Most likely, the pulmonary pressure is normal. We will repeat the echo for repeat pulmonary pressure. The mainstay of therapy will be continued diuretics even as an outpatient. Other than diuretic therapy, nothing else is indicated at this time. TRANSINT:[id number] Voice Confirmation ID: [id number] DOCUMENT ID: [id number] CONSULT REPORT [id number] TU RUIZ JEFFREY MD CC: [id number] DICTATION DATE: 11/05/17922 ANODIZING LINE OPERATOR: 11/05/17 1253 ADM IN [facility] [address] [place] [address]
--- NOTE | ~2017-11-03 | EC ---
PATIENT:TU RUIZ DATE OF SERVICE: 11/04/17 SEX: M MEDICAL RECORD: [id number] DATE OF : [birth year] LOCATION:D.M2 D.213 AGE OF PATIENT: 82 ADMISSION DATE: 11/04/17 REFERRING PHYSICIAN: INTERPRETING PHYSICIAN: THAO FOSTER MD ECHOCARDIOGRAM REPORT ECHO CHARGES 5 ECHO LIMITED 1 DOPPLER ECHO COLOR FLOW 2 DOPPLER ECHO PULSE CLINICAL DIAGNOSIS: EVALUATE PULMONARY PRESSURE ECHOCARDIOGRAPHIC MEASUREMENTS (adult normal given) AC root (d.<3.7cm) 0 cm LV Septum d (<1.2 cm> 0 cm Valve Excursion 0 cm LV Septum (systole) 0 cm Left Atria (s.<4.0cm> 0 cm LVPW d(<1.2cm) 0 cm RV (d.<2.3cm) 0 cm LVPW (sytole) 0 cm LV diastole(<5.6CM) 0 cm MV E-F(>70mm/sec) 0 cm LV systole 0 cm LVOT Diameter 0 cm MV exc.(>10mm) 0 cm Est.ejection fraction (50-75%) % Pericardial Effusion N DOPPLER: LVIT 0 cm/sec A 0 cm/sec E 0 cm/sec LA 0 cm/sec RVSP 19.4 mmHg LVOT 0 cm/sec AOP1/2T 0 m/s Asc. Ao 0 cm/sec RVOT 0 cm/sec RA 0 cm/sec PA 0 cm/sec AV Gradient Peak 0 mmHg AV Mean 0 mmHg AV Area 0 cm MV Gradient Peak 0 mmHg MV Mean 0 mmHg MV Area 0 cm COMMENTS: LIMITED STUDY (2-D,COLOR,DOPPLER) COMPLETE ECHO DONE ON 10/07/17 Master Mechanic: Susana GASPAR Fabric Lay Out Worker: Susana Foster TAPE# PACS DATE OF SERVICE: 11/05/2017 LIMITED ECHOCARDIOGRAM DATE OF SERVICE: 11/05/2017 FINDINGS: 1. Left ventricle chamber size is within normal limits. Left ventricular systolic function is moderately depressed at 45%, unchanged from previous echo. 2. Left atrium, right atrium and right ventricular chamber sizes are within ECHOCARDIOGRAM REPORT [id number] TU RUIZ normal limits. 3. Valvular structures have normal structure and motion. 4. Doppler interrogation reveals mild mitral regurgitation, trace tricuspid regurgitation. No other valvular insufficiency or stenosis. 5. Pulmonary systolic pressure is estimated normal at 19 mmHg. 6. No evidence of pericardial effusion or left ventricular thrombus. TRANSINT:[id number] Voice Confirmation ID: [id number] DOCUMENT ID: [id number] THAO FOSTER MD CC: [id number] DICTATION DATE: 11/06/17 1215 EQUIPMENT SERVICE ENGINEER: 11/06/17 1254 ADM IN [facility] [address] [place] [address]
[2017-11-04 00:15] LABS: ALBUMIN 1.5 g/dL (3.4-5.0); ANION GAP 13.1 mmol/L (8-16); BILIRUBIN - TOTAL 0.7 mg/dL (0.2-1.3); CALCIUM 9.2 mg/dL (8.5-10.1); CARBON DIOXIDE 24.9 mmol/L (21.0-32.0); CREATININE - SERUM 1.6 mg/dL (0.6-1.3); HEMATOCRIT 31.7 % (42.0-54.0); HEMOGLOBIN 10.6 g/dL (13.5-17.5); LYMPHOCYTES 10.6 % (15-50); MCH 31.5 pg (26.0-34.0); MCHC 33.4 g/dL (31.0-37.0); MCV 94.3 fL (80.0-100.0); MEAN PLATELET VOLUME 10.7 fL (7.4-10.4); NEUTROPHILS 84.5 % (40-80); PROTEIN - SERUM 5.7 g/dL (6.4-8.2); RBC 3.36 10x6/uL (4.20-6.10); RDW 16.6 % (11.5-14.5); WBC 11.7 10x3/uL (4.8-10.8)
[2017-11-04 00:18] LABS: PLATELET COUNT 252 10x3/uL (130-400)
[2017-11-04 00:37] LABS: TROPONIN-I 0.077 ng/mL (0.000-0.060)
[2017-11-04 20:00] VITALS: BP 101/50
[2017-11-04 22:26] VITALS: BP 101/50; BMI 31.4
[2017-11-05] VITALS: BP 101/50
[2017-11-05 04:00] VITALS: BP 90/60
[2017-11-05 05:01] LABS: BASOPHILS 0.1 % (0-2); EOSINOPHILS 2.9 % (0-7); HEMATOCRIT 27.6 % (42.0-54.0); HEMOGLOBIN 8.9 g/dL (13.5-17.5); IMMATURE GRANULOCYTES 0.2 % (0-5); LYMPHOCYTES 22.3 % (15-50); MCH 30.7 pg (26.0-34.0); MCHC 32.2 g/dL (31.0-37.0); MCV 95.2 fL (80.0-100.0); MEAN PLATELET VOLUME 10.5 fL (7.4-10.4); MONOCYTES 7.2 % (2-11); NEUTROPHILS 67.3 % (40-80); PLATELET COUNT 206 10x3/uL (130-400)
[2017-11-05 05:08] LABS: WBC 8.7 10x3/uL (4.8-10.8)
[2017-11-05 05:24] LABS: ANION GAP 9.5 mmol/L (8-16); CALCIUM 9.1 mg/dL (8.5-10.1); CREATININE - SERUM 1.5 mg/dL (0.6-1.3); POTASSIUM - SERUM 3.5 mmol/L (3.5-5.1)
[2017-11-05 11:01] VITALS: BP 125/69
[2017-11-05 13:14] VITALS: Ht 185.4 cm; Wt 102.2 kg
[2017-11-05 13:41] VITALS: BP 130/64
[2017-11-05 17:40] VITALS: BP 111/65
[2017-11-05 19:00] VITALS: BP 113/68
[2017-11-06 04:00] VITALS: BP 119/66
[2017-11-06 06:17] LABS: BASOPHILS 0.1 % (0-2); EOSINOPHILS 3.1 % (0-7); HEMATOCRIT 27.5 % (42.0-54.0); HEMOGLOBIN 8.9 g/dL (13.5-17.5); IMMATURE GRANULOCYTES 0.3 % (0-5); LYMPHOCYTES 20.4 % (15-50); MCH 30.8 pg (26.0-34.0); MCHC 32.4 g/dL (31.0-37.0); MCV 95.2 fL (80.0-100.0); MONOCYTES 6.1 % (2-11); PLATELET COUNT 220 10x3/uL (130-400); RBC 2.89 10x6/uL (4.20-6.10); WBC 9.4 10x3/uL (4.8-10.8)
[2017-11-06 06:39] LABS: ANION GAP 10.4 mmol/L (8-16); CALCIUM 8.9 mg/dL (8.5-10.1); CARBON DIOXIDE 28.1 mmol/L (21.0-32.0); CREATININE - SERUM 1.6 mg/dL (0.6-1.3); POTASSIUM - SERUM 3.5 mmol/L (3.5-5.1)
[2017-11-06 08:47] VITALS: BP 103/45
[2017-11-06 12:33] VITALS: BP 102/50
[2017-11-06 16:24] VITALS: BP 111/47
[2017-11-06 21:44] VITALS: BP 109/54
[2017-11-07 01:15] VITALS: BP 121/54
[2017-11-07 05:58] VITALS: BP 118/55
[2017-11-07 06:13] LABS: BASOPHILS 0.1 % (0-2); EOSINOPHILS 3.1 % (0-7); HEMATOCRIT 26.3 % (42.0-54.0); HEMOGLOBIN 8.5 g/dL (13.5-17.5); IMMATURE GRANULOCYTES 0.4 % (0-5); LYMPHOCYTES 24.4 % (15-50); MCH 31.1 pg (26.0-34.0); MCHC 32.3 g/dL (31.0-37.0); MCV 96.3 fL (80.0-100.0); MEAN PLATELET VOLUME 10.1 fL (7.4-10.4); MONOCYTES 6.8 % (2-11); NEUTROPHILS 65.2 % (40-80); PLATELET COUNT 199 10x3/uL (130-400); RBC 2.73 10x6/uL (4.20-6.10); RDW 16.2 % (11.5-14.5); WBC 8.9 10x3/uL (4.8-10.8)
[2017-11-07 06:31] LABS: ANION GAP 9.4 mmol/L (8-16); CALCIUM 8.6 mg/dL (8.5-10.1); CREATININE - SERUM 1.8 mg/dL (0.6-1.3); POTASSIUM - SERUM 3.4 mmol/L (3.5-5.1)
[2017-11-07 08:06] VITALS: BP 125/57
[2017-11-07 11:18] VITALS: BP 138/69
[2017-11-07 15:42] VITALS: BP 113/61
[2017-11-07 19:00] VITALS: BP 117/57
[2017-11-08 04:00] VITALS: BP 104/68
[2017-11-08 06:55] LABS: HEMATOCRIT 27.5 % (42.0-54.0); HEMOGLOBIN 9.2 g/dL (13.5-17.5); LYMPHOCYTES 18.6 % (15-50); MCH 31.5 pg (26.0-34.0); MCHC 33.5 g/dL (31.0-37.0); MEAN PLATELET VOLUME 10.1 fL (7.4-10.4); NEUTROPHILS 75.5 % (40-80); PLATELET COUNT 201 10x3/uL (130-400); RBC 2.92 10x6/uL (4.20-6.10); RDW 15.5 % (11.5-14.5); WBC 10.5 10x3/uL (4.8-10.8)
[2017-11-08 06:56] LABS: MCV 94.2 fL (80.0-100.0)
[2017-11-08 06:59] LABS: CALCIUM 8.8 mg/dL (8.5-10.1); CARBON DIOXIDE 28.3 mmol/L (21.0-32.0); CREATININE - SERUM 1.8 mg/dL (0.6-1.3); POTASSIUM - SERUM 3.3 mmol/L (3.5-5.1)
[2017-11-08 08:24] VITALS: BP 140/68
[2017-11-08] MEDS ORDERED: K-DUR20 MEQ PO (08:49)
[2017-11-08] MEDS ORDERED: LASIX40 MG PO (08:49)
[2017-11-08 11:43] VITALS: BP 115/61
[2017-11-08 15:48] VITALS: BP 116/51
[2017-11-08 19:00] VITALS: BP 98/51
[2017-11-08 19:51] VITALS: BP 98/51
== END 2017-11-08 20:50 | disposition home health service (06) | DRG 291 ==
LOC: D.ER 23:07 → D.M2 11-04 00:23 → D.SDCHOLD 11-04 00:23 → D.M2 11-04 19:23
PROVIDERS: Internal Medicine Nephrology; Physician Assistant Medical
DX: I13.0 Hypertensive heart and chronic kidney disease with heart failure and stage 1 through stage 4 chronic kidney disease, or unspecified chronic kidney disease (principal); I50.43 Acute on chronic combined systolic (congestive) and diastolic (congestive) heart failure; N17.9 Acute kidney failure, unspecified; N18.9 Chronic kidney disease, unspecified; E11.22 Type 2 diabetes mellitus with diabetic chronic kidney disease; E11.65 Type 2 diabetes mellitus with hyperglycemia; E78.5 Hyperlipidemia, unspecified; D50.9 Iron deficiency anemia, unspecified; Z74.01 Bed confinement status; L89.152 Pressure ulcer of sacral region, stage 2; E11.622 Type 2 diabetes mellitus with other skin ulcer; I27.20 Pulmonary hypertension, unspecified; Z86.73 Personal history of transient ischemic attack (TIA), and cerebral infarction without residual deficits; Z85.46 Personal history of malignant neoplasm of prostate

== ENCOUNTER → 2017-11-21 19:43 | Outpatient (CLI) | payer MEDICARE ==
[2017-11-05 13:14] VITALS: BMI 31.4
[~2017-11-21 19:43] MED LIST changes: +K-DUR20 MEQ PO; +LASIX40 MG PO
[2017-11-21 20:29] LABS: APPEARANCE HAZY (CLEAR); BILIRUBIN NEGATIVE (NEGATIVE); COLOR STRAW (YELLOW); GLUCOSE NEGATIVE (NEGATIVE); KETONE NEGATIVE (NEGATIVE); NITRITE NEGATIVE (NEGATIVE); PROTEIN NEGATIVE (NEGATIVE); UROBILINOGEN NORMAL (NORMAL)
[2017-11-21 20:30] LABS: BACTERIA MANY /hpf (NONE SEEN); RED CELLS - URINE 0-5 /hpf (0-5); WHITE CELLS - URINE 25-50 /hpf (0-5)
== END | disposition home or self-care (01) ==
LOC: D.LABREF 19:43
PROVIDERS: Internal Medicine
DX: N39.0 Urinary tract infection, site not specified (principal)

== ENCOUNTER → 2017-12-15 19:49 | Outpatient (CLI) | payer MEDICARE ==
[2017-11-05 13:14] VITALS: BMI 31.4
[~2017-12-15 19:49] MED LIST changes: +LANTUS SOL100 UNIT/1 SC; +NOVOLOG100 U/M1 SC; +ULTRAM50 MG PO
[2017-12-15 21:56] LABS: APPEARANCE HAZY (CLEAR); BILIRUBIN NEGATIVE (NEGATIVE); COLOR YELLOW (YELLOW); GLUCOSE NEGATIVE (NEGATIVE); KETONE SMALL mg/dL (NEGATIVE); NITRITE POSITIVE (NEGATIVE); PROTEIN TRACE mg/dL (NEGATIVE); UROBILINOGEN NORMAL (NORMAL)
[2017-12-15 21:58] LABS: BACTERIA MANY /hpf (NONE SEEN); WHITE CELLS - URINE >50 /hpf (0-5); YEAST <1+ /hpf (NONE SEEN)
== END | disposition home or self-care (01) ==
LOC: D.LABREF 19:49
PROVIDERS: Family Medicine
DX: R41.0 Disorientation, unspecified (principal); R82.90 Unspecified abnormal findings in urine

== ENCOUNTER → 2017-12-19 19:25 | Outpatient (CLI) | payer MEDICARE ==
[2017-11-05 13:14] VITALS: BMI 31.4
[2017-12-19 20:24] LABS: BASOPHILS 0.1 % (0-2); EOSINOPHILS 0.7 % (0-7); HEMATOCRIT 33.2 % (42.0-54.0); HEMOGLOBIN 10.9 g/dL (13.5-17.5); IMMATURE GRANULOCYTES 0.3 % (0-5); LYMPHOCYTES 18.3 % (15-50); MCH 31.7 pg (26.0-34.0); MCHC 32.8 g/dL (31.0-37.0); MCV 96.5 fL (80.0-100.0); MEAN PLATELET VOLUME 11.1 fL (7.4-10.4); MONOCYTES 6.3 % (2-11); NEUTROPHILS 74.3 % (40-80); RBC 3.44 10x6/uL (4.20-6.10); RDW 16.9 % (11.5-14.5); WBC 13.5 10x3/uL (4.8-10.8)
[2017-12-19 20:26] LABS: PLATELET COUNT 155 10x3/uL (130-400)
== END | disposition home or self-care (01) ==
LOC: D.LABREF 19:25
PROVIDERS: Family Medicine
DX: E11.9 Type 2 diabetes mellitus without complications (principal); N39.0 Urinary tract infection, site not specified

== ENCOUNTER → 2017-12-26 12:17 | Outpatient (CLI) | payer MEDICARE ==
[2017-11-05 13:14] VITALS: BMI 31.4
[2017-12-26 12:43] LABS: BASOPHILS 0.1 % (0-2); EOSINOPHILS 1.4 % (0-7); HEMATOCRIT 33.5 % (42.0-54.0); HEMOGLOBIN 10.9 g/dL (13.5-17.5); IMMATURE GRANULOCYTES 0.3 % (0-5); LYMPHOCYTES 21.1 % (15-50); MCH 32.1 pg (26.0-34.0); MCHC 32.5 g/dL (31.0-37.0); MCV 98.5 fL (80.0-100.0); MEAN PLATELET VOLUME 11.5 fL (7.4-10.4); MONOCYTES 5.1 % (2-11); PLATELET COUNT 136 10x3/uL (130-400); RDW 17.4 % (11.5-14.5); WBC 12.3 10x3/uL (4.8-10.8)
[2017-12-26 12:50] LABS: ANION GAP 12.6 mmol/L (8-16); CARBON DIOXIDE 25.3 mmol/L (21.0-32.0); POTASSIUM - SERUM 3.9 mmol/L (3.5-5.1)
[2017-12-26 12:56] LABS: CALCIUM 12.2 mg/dL (8.5-10.1)
== END | disposition home or self-care (01) ==
LOC: D.LABREF 12:17
PROVIDERS: Family Medicine
DX: I11.0 Hypertensive heart disease with heart failure (principal); I12.9 Hypertensive chronic kidney disease with stage 1 through stage 4 chronic kidney disease, or unspecified chronic kidney disease; N18.9 Chronic kidney disease, unspecified

== ENCOUNTER → 2018-01-10 10:09 | Outpatient (CLI) | payer MEDICARE ==
[2017-11-05 13:14] VITALS: BMI 31.4
[2018-01-10 10:27] LABS: BASOPHILS 0.1 % (0-2); EOSINOPHILS 3.6 % (0-7); HEMATOCRIT 29.6 % (42.0-54.0); HEMOGLOBIN 9.9 g/dL (13.5-17.5); IMMATURE GRANULOCYTES 0.2 % (0-5); LYMPHOCYTES 26.5 % (15-50); MCH 32.4 pg (26.0-34.0); MCHC 33.4 g/dL (31.0-37.0); MCV 96.7 fL (80.0-100.0); MEAN PLATELET VOLUME 11.1 fL (7.4-10.4); MONOCYTES 6.2 % (2-11); NEUTROPHILS 63.4 % (40-80); PLATELET COUNT 148 10x3/uL (130-400); RBC 3.06 10x6/uL (4.20-6.10); RDW 16.8 % (11.5-14.5); WBC 8.6 10x3/uL (4.8-10.8)
[2018-01-10 10:48] LABS: ALBUMIN 1.9 g/dL (3.4-5.0); ANION GAP 12.5 mmol/L (8-16); BILIRUBIN - TOTAL 0.59 mg/dL (0.2-1.3); CALCIUM 12.1 mg/dL (8.5-10.1); CARBON DIOXIDE 28.3 mmol/L (21.0-32.0); CREATININE - SERUM 2.5 mg/dL (0.6-1.3); POTASSIUM - SERUM 3.8 mmol/L (3.5-5.1); PROTEIN - SERUM 6.2 g/dL (6.4-8.2); THYROID STIMULATING HORMONE 4.43 uIU/mL (0.36-3.74)
== END | disposition home or self-care (01) ==
LOC: D.LABREF 10:09
PROVIDERS: Family Medicine
DX: I11.9 Hypertensive heart disease without heart failure (principal); E11.9 Type 2 diabetes mellitus without complications; I12.9 Hypertensive chronic kidney disease with stage 1 through stage 4 chronic kidney disease, or unspecified chronic kidney disease; N18.9 Chronic kidney disease, unspecified; L89.159 Pressure ulcer of sacral region, unspecified stage

== ENCOUNTER 2018-01-16 12:54 | Inpatient (IN) | payer MEDICARE ==
[~2018-01-16] VITALS: Ht 185.4 cm; Wt 95.2 kg
--- NOTE | ~2018-01-16 | CN ---
PATIENT NAME:TU KINNEY MEDICAL RECORD: [id number] : 39 LOCATION:DMarylu D.2108 ADMIT DATE: 01/16/18 ACCOUNT: [id number] CONSULTING PHYSICIAN: THAO HORNER MD REFERRING PHYSICIAN: ANGEL SCHULZ MD DATE OF CONSULTATION: 01/18/2018 DIAGNOSES: 1. Elevated troponin. 2. Coronary artery disease. 3. Cardiomyopathy. 4. Anemia. 5. Recent gastrointestinal bleed. 6. Renal insufficiency. 7. Hypertension. 8. Diabetes. 9. History of congestive heart failure. 10. Shortness of breath. HISTORY OF PRESENT ILLNESS: Mr. Kinney presents with shortness of breath. He has a complex medical history including dementia and recent GI bleed, bedbound, decreased level of functioning. He does have a cardiomyopathy previously ejection fraction in the 45% range, now ejection fraction in the 40% range. He did have a mildly elevated troponin, but he as well has renal insufficiency, creatinine of 2.2. His troponin was 0.102. He has no EKG changes. His BNP was mildly elevated at 5525. His hemoglobin is in the 9 range. He has been treated with Lasix 40 p.o. b.i.d. and has diuresed. He is a difficult historian. It is difficult to tell if his breathing is back to baseline. PHYSICAL EXAMINATION: GENERAL APPEARANCE: Well-nourished, well-developed, appears stated age. Level of distress, comfortable. PSYCHIATRIC: Mental status, alert, normal affect. Orientation, oriented to time, place and person. EYES: Lids and conjunctiva, noninjected. No discharge, no pallor. ENT: Lips, teeth, gums, normal dentition. Oropharynx, no cyanosis, no pallor. NECK: Carotid arteries, bilateral normal upstroke, no bruits, no thrills. JUGULAR VEINS: No jugular venous pressure or distention. CERVICAL LYMPH NODES: Nontender, nonenlarged. THYROID: Not enlarged. Nontender. No nodules. LUNGS: Respiratory effort, unlabored. CHEST: Normal curvature. No thoracic deformity. No chest wall tenderness. Percussion, resonant. Auscultation, clear. No wheezes, no rales, no rhonchi. CARDIOVASCULAR: Precordial exam, nondisplaced. No heaves or pericardial thrills. Rate and rhythm, regular. Heart sounds, normal S1, normal S2. No S3, no gallop, no rub. Systolic murmur, not heard. Diastolic murmur, not heard. EXTREMITIES: No cyanosis, no edema. Peripheral pulses, full and equal in all extremities, except as noted. No bruits appreciated. ABDOMEN: Soft, nondistended. Normal aorta. No bruit. Nontender. No masses. Liver, nontender, no hepatomegaly. Spleen, nontender, no splenomegaly. MUSCULOSKELETAL: No joint tenderness. No joint swelling. No erythema. NEUROLOGICAL: Normal gait, normal strength, normal tone. SKIN: Warm and dry. OVERALL IMPRESSION: Shortness of breath. Urine cultures positive for CONSULT REPORT [id number] TU KINNEY Gram-negative rods. Blood cultures are pending. 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 At this time, other than echocardiogram, no other cardiac workup or treatment is necessary. He is on Plavix. We will decrease his aspirin from 325 to 81 due to the recent gastrointestinal bleed. His heart rates in the 60s, would not add a beta daly. Systolic blood pressures in the 100 range, would not add ABI or ARB. TRANSINT:[id number] Voice Confirmation ID: [id number] DOCUMENT ID: [id number] THAO HORNER MD at 0956 CC: [id number] DICTATION DATE: 01/18/18 1435 XEROX MACHINE OPERATOR: 01/18/18 1848 DIS IN 01/21/18 [place] [id number] [place] [address]
--- NOTE | ~2018-01-16 | EC ---
PATIENT:TU RUIZ DATE OF SERVICE: 01/16/18 SEX: M MEDICAL RECORD: [id number] DATE OF : [birth year] LOCATION:D.M2 D.210 AGE OF PATIENT: 82 ADMISSION DATE: 01/16/18 REFERRING PHYSICIAN: INTERPRETING PHYSICIAN: THAO FOSTER MD ECHOCARDIOGRAM REPORT ECHO CHARGES 5 ECHO LIMITED Date: 01/17 CLINICAL DIAGNOSIS: ELEVATED TROPONIN HX PACER ECHOCARDIOGRAPHIC MEASUREMENTS (adult normal given) AC root (d.<3.7cm) 4.0 cm LV Septum d (<1.2 cm> 2.1 cm Valve Excursion 1.4 cm LV Septum (systole) 2.5 cm Left Atria (s.<4.0cm> 3.9 cm LVPW d(<1.2cm) 2.3 cm RV (d.<2.3cm) 4.9 cm LVPW (sytole) 2.5 cm LV diastole(<5.6CM) 3.0 cm MV E-F(>70mm/sec) cm LV systole 1.7 cm LVOT Diameter 1.8 cm MV exc.(>10mm) cm Est.ejection fraction (50-75%) % DOPPLER: LVIT cm/sec A cm/sec E cm/sec LA cm/sec RVSP 27 mmHg LVOT cm/sec AOP1/2T m/s Asc. Ao cm/sec RVOT cm/sec RA cm/sec PA cm/sec AV Gradient Peak mmHg AV Mean mmHg AV Area cm MV Gradient Peak mmHg MV Mean mmHg MV Area cm COMMENTS: Risk Developer: Beena MCCALL Auto Body Worker: 1 Dr. Foster TAPE# PACS Pericardial Effusion N DATE OF SERVICE: Echocardiogram FINDINGS: 1. Left ventricular chamber size is within normal limits. Left ventricular systolic function is mildly depressed at 40% to 45%. There is mild global hypokinesis in the lateral segments with no discrete wall motion abnormalities present. 2. Left atrium is within normal limits at 3.9 cm. Right atrium and right ECHOCARDIOGRAM REPORT [id number] TU RUIZ ventricular sizes are [id number] dilated. 3. Valvular structures have normal structure and motion. 4. Doppler interrogation reveals mild tricuspid regurgitation, no other valvular insufficiency or stenosis and pulmonary systolic pressure is normal estimated at 27 mmHg. 5. No evidence of pericardial effusion or left ventricular thrombus. TRANSINT:[id number] Voice Confirmation ID: [id number] DOCUMENT ID: [id number] THAO FOSTER MD at 0956 CC: [id number] DICTATION DATE: 01/18/18 110 TUBE FITTER: 01/18/18 1517 DIS IN 01/21/18 [place] [id number] [place] [id number]
[~2018-01-16 12:54] MED LIST changes: -LANTUS SOL100 UNIT/1 SC; -NOVOLOG100 U/M1 SC; -ULTRAM50 MG PO
[2018-01-16 13:29] LABS: BASOPHILS 0.2 % (0-2); HEMATOCRIT 33.9 % (42.0-54.0); HEMOGLOBIN 11.3 g/dL (13.5-17.5); IMMATURE GRANULOCYTES 0.1 % (0-5); LYMPHOCYTES 19.1 % (15-50); MCH 32.5 pg (26.0-34.0); MCHC 33.3 g/dL (31.0-37.0); MCV 97.4 fL (80.0-100.0); MEAN PLATELET VOLUME 10.1 fL (7.4-10.4); NEUTROPHILS 73.6 % (40-80); PLATELET COUNT 158 10x3/uL (130-400); RBC 3.48 10x6/uL (4.20-6.10); RDW 16.8 % (11.5-14.5); WBC 10.1 10x3/uL (4.8-10.8)
[2018-01-16 13:57] LABS: ALBUMIN 2.1 g/dL (3.4-5.0); BILIRUBIN - TOTAL 0.6 mg/dL (0.2-1.3); CALCIUM 11.6 mg/dL (8.5-10.1); CARBON DIOXIDE 28.5 mmol/L (21.0-32.0); CREATININE - SERUM 2.2 mg/dL (0.6-1.3); PROTEIN - SERUM 6.7 g/dL (6.4-8.2)
[2018-01-16 14:05] LABS: ANION GAP 9.3 mmol/L (8-16)
[2018-01-16 14:06] LABS: POTASSIUM - SERUM 2.8 mmol/L (3.5-5.1); TROPONIN-I 0.102 ng/mL (0.000-0.060)
[2018-01-16 14:54] LABS: APPEARANCE HAZY (CLEAR); BILIRUBIN NEGATIVE (NEGATIVE); COLOR YELLOW (YELLOW); GLUCOSE NEGATIVE (NEGATIVE); KETONE NEGATIVE (NEGATIVE); NITRITE NEGATIVE (NEGATIVE); PROTEIN TRACE mg/dL (NEGATIVE); SPECIFIC GRAVITY 1.015 (1.005-1.020); UROBILINOGEN NORMAL (NORMAL)
[2018-01-16 14:55] LABS: BACTERIA MANY /hpf (NONE SEEN); RED CELLS - URINE >50 /hpf (0-5); WHITE CELLS - URINE >50 /hpf (0-5)
[2018-01-16 18:40] VITALS: BP 148/68; BMI 23.9
[2018-01-16 20:00] VITALS: BP 118/56
[2018-01-17 01:00] VITALS: BP 118/53
[2018-01-17 04:16] LABS: BASOPHILS 0.1 % (0-2); EOSINOPHILS 2.6 % (0-7); HEMATOCRIT 29.9 % (42.0-54.0); HEMOGLOBIN 9.9 g/dL (13.5-17.5); IMMATURE GRANULOCYTES 0.2 % (0-5); LYMPHOCYTES 22.9 % (15-50); MCH 32.1 pg (26.0-34.0); MCHC 33.1 g/dL (31.0-37.0); MCV 97.1 fL (80.0-100.0); MEAN PLATELET VOLUME 10.9 fL (7.4-10.4); MONOCYTES 7.8 % (2-11); NEUTROPHILS 66.4 % (40-80); PLATELET COUNT 147 10x3/uL (130-400); RBC 3.08 10x6/uL (4.20-6.10); RDW 16.9 % (11.5-14.5); WBC 9.4 10x3/uL (4.8-10.8)
[2018-01-17 04:20] LABS: ANION GAP 10.5 mmol/L (8-16); CALCIUM 10.3 mg/dL (8.5-10.1); CARBON DIOXIDE 28.6 mmol/L (21.0-32.0); CREATININE - SERUM 1.9 mg/dL (0.6-1.3); POTASSIUM - SERUM 3.1 mmol/L (3.5-5.1)
[2018-01-17 05:00] VITALS: BP 117/53
[2018-01-17 08:15] VITALS: BP 115/50
[2018-01-17] MEDS ORDERED: ULTRAM50 MG PO (09:41)
[2018-01-17] MEDS ORDERED: LANTUS SOL100 UNIT/1 SC (09:43)
[2018-01-17] MEDS ORDERED: NOVOLOG100 U/M1 SC (09:48)
[2018-01-17 11:31] VITALS: BP 116/48
[2018-01-17 16:44] VITALS: BP 115/80
[2018-01-17 20:00] VITALS: BP 105/52
[2018-01-18 01:00] VITALS: BP 96/31
[2018-01-18 05:00] VITALS: BP 107/48
[2018-01-18 06:26] LABS: BASOPHILS 0.1 % (0-2); HEMATOCRIT 28.7 % (42.0-54.0); HEMOGLOBIN 9.4 g/dL (13.5-17.5); IMMATURE GRANULOCYTES 0.2 % (0-5); LYMPHOCYTES 25.9 % (15-50); MCH 32.2 pg (26.0-34.0); MCHC 32.8 g/dL (31.0-37.0); MCV 98.3 fL (80.0-100.0); MEAN PLATELET VOLUME 10.5 fL (7.4-10.4); NEUTROPHILS 60.8 % (40-80); PLATELET COUNT 132 10x3/uL (130-400); RBC 2.92 10x6/uL (4.20-6.10); RDW 16.9 % (11.5-14.5); WBC 8.8 10x3/uL (4.8-10.8)
[2018-01-18 06:43] LABS: ANION GAP 12.9 mmol/L (8-16); CALCIUM 10.2 mg/dL (8.5-10.1); CARBON DIOXIDE 23.4 mmol/L (21.0-32.0)
[2018-01-18 06:44] LABS: POTASSIUM - SERUM 4.3 mmol/L (3.5-5.1)
[2018-01-18 09:53] VITALS: BP 113/47
[2018-01-18 12:49] VITALS: BP 115/67
[2018-01-18 16:30] VITALS: BP 126/60
[2018-01-18 20:00] VITALS: BP 158/59
[2018-01-19] VITALS (8 sets, daily range): BP systolic 90–107; BP diastolic 35–47; Ht 185.4 cm; Wt 95.2 kg
[2018-01-19 06:17] LABS: ANION GAP 11.3 mmol/L (8-16); CALCIUM 9.5 mg/dL (8.5-10.1); CARBON DIOXIDE 22.4 mmol/L (21.0-32.0); POTASSIUM - SERUM 4.7 mmol/L (3.5-5.1)
[2018-01-19 07:05] LABS: BASOPHILS 0.1 % (0-2); HEMATOCRIT 27.8 % (42.0-54.0); HEMOGLOBIN 8.9 g/dL (13.5-17.5); IMMATURE GRANULOCYTES 0.3 % (0-5); LYMPHOCYTES 20.8 % (15-50); MCH 31.6 pg (26.0-34.0); MCV 98.6 fL (80.0-100.0); MEAN PLATELET VOLUME 9.4 fL (7.4-10.4); MONOCYTES 6.4 % (2-11); NEUTROPHILS 67.4 % (40-80); PLATELET COUNT 126 10x3/uL (130-400); RBC 2.82 10x6/uL (4.20-6.10); RDW 16.7 % (11.5-14.5); WBC 9.5 10x3/uL (4.8-10.8)
[2018-01-20] VITALS (7 sets, daily range): BP systolic 96–110; BP diastolic 45–77
[2018-01-20 06:40] LABS: BASOPHILS 0.1 % (0-2); EOSINOPHILS 4.6 % (0-7); HEMATOCRIT 28.3 % (42.0-54.0); HEMOGLOBIN 9.1 g/dL (13.5-17.5); IMMATURE GRANULOCYTES 0.3 % (0-5); LYMPHOCYTES 27.9 % (15-50); MCH 31.7 pg (26.0-34.0); MCHC 32.2 g/dL (31.0-37.0); MCV 98.6 fL (80.0-100.0); MEAN PLATELET VOLUME 10.3 fL (7.4-10.4); MONOCYTES 5.1 % (2-11); PLATELET COUNT 132 10x3/uL (130-400); RBC 2.87 10x6/uL (4.20-6.10); RDW 16.8 % (11.5-14.5); WBC 8.8 10x3/uL (4.8-10.8)
[2018-01-20 07:01] LABS: ANION GAP 11.9 mmol/L (8-16); CALCIUM 9.4 mg/dL (8.5-10.1); CARBON DIOXIDE 24.1 mmol/L (21.0-32.0); PHOSPHOROUS 2.2 mg/dL (2.5-4.9)
[2018-01-21 01:23] VITALS: BP 123/40
[2018-01-21 05:29] VITALS: BP 83/38
[2018-01-21 06:06] LABS: HEMATOCRIT 28.5 % (42.0-54.0); HEMOGLOBIN 9.3 g/dL (13.5-17.5); MCH 31.8 pg (26.0-34.0); MCHC 32.6 g/dL (31.0-37.0); MCV 97.6 fL (80.0-100.0); MEAN PLATELET VOLUME 10.5 fL (7.4-10.4); PLATELET COUNT 139 10x3/uL (130-400); RBC 2.92 10x6/uL (4.20-6.10); RDW 16.8 % (11.5-14.5); WBC 23.8 10x3/uL (4.8-10.8)
[2018-01-21 06:43] LABS: CALCIUM 9.4 mg/dL (8.5-10.1); CARBON DIOXIDE 23.4 mmol/L (21.0-32.0); CREATININE - SERUM 2.3 mg/dL (0.6-1.3); POTASSIUM - SERUM 4.4 mmol/L (3.5-5.1)
[2018-01-21 07:10] LABS: LYMPHOCYTES 15 % (15-50); MONOCYTES 4 % (2-11); NEUTROPHILS 80 % (40-80); PLATELET ESTIMATE NORMAL
[2018-01-21 10:15] VITALS: BP 95/36
[2018-01-21] MEDS ORDERED: ASPIRIN325 MG PO (12:07)
[2018-01-21 12:31] VITALS: BP 95/37
== END 2018-01-21 16:25 | disposition home health service (06) | DRG 698 ==
LOC: D.ER 12:54 → D.EDHOLD 15:41 → D.M2 15:41
PROVIDERS: Family Medicine; Internal Medicine Nephrology
DX: T83.511A Infection and inflammatory reaction due to indwelling urethral catheter, initial encounter (principal); I50.43 Acute on chronic combined systolic (congestive) and diastolic (congestive) heart failure; R53.2 Functional quadriplegia; N17.9 Acute kidney failure, unspecified; N39.0 Urinary tract infection, site not specified; E87.6 Hypokalemia; D50.9 Iron deficiency anemia, unspecified; I27.20 Pulmonary hypertension, unspecified; L89.152 Pressure ulcer of sacral region, stage 2; E11.622 Type 2 diabetes mellitus with other skin ulcer; Y84.6 Urinary catheterization as the cause of abnormal reaction of the patient, or of later complication, without mention of misadventure at the time of the procedure; Z86.73 Personal history of transient ischemic attack (TIA), and cerebral infarction without residual deficits